=== PATIENT | female | born 1935 | race Caucasian/White ===

== ENCOUNTER 2017-07-08 19:16 | Inpatient (IN) | payer MEDICARE, BC ==
[2017-07-08] MEDS ORDERED: Sodium Chloride 0.9% 10 ML Syringe FLUSH PRN (19:39)
[2017-07-08] MEDS ORDERED: Sodium Chloride 0.9% 1,000 ML IV ONE (19:41)
--- NOTE | 2017-07-08 20:25 | CT ---
Head CT Technique: Multiple axial sections through the brain were obtained. Intravenous contrast was not utilized. Comparison: Previous noncontrast head CT exam of 02/22/13. Findings: Ventricles along with basal cisterns and sulci over the convexities are moderately prominent. Diffuse diminished density is is noted within the periventricular and subcortical white matter which is compatible with small vessel ischemic demyelination change. Mild diminished density noted within the right temporal lobe suspicious for fairly acute infarct. No other abnormal parenchymal densities are seen. No evidence of intracranial hemorrhage. No midline shift or mass effect is seen. Bone window settings were reviewed which shows the visualized sinuses to appear clear. No acute calvarial abnormality is seen. Impression: 1. Fairly acute infarct is likely present within the right temporal region. 2. Other senescent change as noted above which appears chronic. 3. No intracranial hemorrhage is seen. Diagnostic code #3
[2017-07-08] MEDS ORDERED: Calcium Carbonate 500 MG Tab.Chew PO PRN (22:21)
[2017-07-08] MEDS ORDERED: Bisacodyl 10 MG Supp RECTAL PRN (22:21)
[2017-07-08] MEDS ORDERED: Aluminum Hydroxide/Magnesium Hydroxide/Simethicone Susp 30 ML Cup PO PRN (22:21)
[2017-07-08] MEDS ORDERED: Docusate Sodium 100 MG Cap PO PRN (22:21)
--- NOTE | 2017-07-08 22:29 | EDM.PDOC ---
ED HPI GENERAL MEDICAL PROBLEM - General Chief Complaint: Genitourinary Problem Stated Complaint: MARIN AMB Time Seen by Provider: 07/08/17 19:20 Source of Information: Reports: Patient History Limitations: Reports: No Limitations - History of Present Illness INITIAL COMMENTS - FREE TEXT/NARRATIVE: 82-year-old female is brought in by EMS after she was found on the ground. Reportedly the patient's neighbor checked on her and found her on the ground. When EMS arrived she told him that she was laying on the ground as she has chronic back pain and this helps with her pain. When first questioned by EMS she was alert and oriented 2. After further discussion she was alert and orientated by 4. Reportedly the patient has recently been started on antibiotic for urinary tract infection. Upon arrival to the ER the patient reports that she feels cold. She reports back pain. Denies any headaches, chest pain, shortness of breath, abdominal pain , nausea vomiting, fevers. Patient is alert and oriented 4 upon my questioning. She does answer questions appropriately. Reportedly the patient lives at home by herself. Patient's children have arrived to the ER. Daughter states that she has been trying to get all of her all day. Son reports that he talks to her daily. States they were unable to get a hold of her around 5 PM. They began concerned and asked a neighbor to check on her. she was found to be down the floor. Back Pain Score (Numeric/FACES): 8 - Related Data Allergies Allergy/AdvReac Type Severity Reaction Status Date / Time codeine Allergy Hives Verified 07/08/17 19:24 losartan [From Cozaar] Allergy Hives Verified 07/08/17 19:24 Home Meds: Home Meds Allopurinol [Zyloprim] 1 tab PO DAILY 07/08/17 [History] Ciprofloxacin HCl [Cipro] 1 tab PO BID 07/08/17 [History] Enalapril [Vasotec] 1 tab PO DAILY 07/08/17 [History] Metoprolol Succinate 1 tab PO DAILY 07/08/17 [History] Multivits,Ca,Minerals/Iron/FA [One-A-Day Women's] 1 tab PO DAILY 07/08/17 [ History] Sulfamethoxazole/Trimethoprim [Bactrim Ds Tablet] 1 tab PO BID 07/08/17 [History ] Triamterene/Hydrochlorothiazid [Triamterene-HCTZ 37.5-25 MG] 1 cap PO DAILY 11/19 [History] atorvaSTATin [Lipitor] 1 tab PO DAILY 07/08/17 [History] traMADol [Ultram] 1 tab PO Q4HR PRN 07/08/17 [History] Past Medical History HEENT History: Reports: Other (See Below) Other HEENT History: wears glasses Cardiovascular History: Reports: Hypertension Genitourinary History: Reports: UTI, Recurrent Musculoskeletal History: Reports: Back Pain, Chronic - Past Surgical History Female Surgical History: Reports: Hysterectomy Social & Family History - Tobacco Use Smoking Status *Q: Never Smoker - Recreational Drug Use Recreational Drug Use: No ED ROS GENERAL - Review of Systems Review Of Systems: See Below Constitutional: Denies: Fever, Chills Respiratory: Denies: Shortness of Breath Cardiovascular: Denies: Chest Pain GI/Abdominal: Denies: Abdominal Pain, Nausea, Vomiting Musculoskeletal: Reports: Back Pain (chronic) Neurological: Denies: Headache ED EXAM, RENAL/ - Physical Exam Exam: See Below Exam Limited By: No Limitations General Appearance: Alert, WD/WN, No Apparent Distress Eye Exam: Bilateral Eye: EOMI, PERRL Ears: Normal External Exam Nose: Normal Inspection Throat/Mouth: Normal Inspection, Normal Lips, Normal Voice, No Airway Compromise Respiratory/Chest: No Respiratory Distress, Lungs Clear, Normal Breath Sounds Cardiovascular: Normal Peripheral Pulses, Regular Rate, Rhythm, No Murmur GI/Abdominal: Soft, Non-Tender Extremities: Normal Inspection, Other (no rotation to the lower legs; pelvis stable) Neurological: Alert, Oriented, Memory Loss Recent Events Psychiatric: Normal Affect, Normal Mood Skin Exam: Warm, Dry, Normal Color EKG INTERPRETATION EKG Date: 07/08/17 Time: 20:15 Rhythm: NSR Rate (Beats/Min): 98 Grady: Normal P-Wave: Present QRS: Normal ST-T: Normal QT: Normal EKG Interpretation Comments: NSR at 98 bpm. Multiple PVCs. Probable LVH. T wave inversion in V5 and V6. Reviewed by myself and Dr. Lee. Course - Vital Signs Last Recorded V/S: Last Vital Signs Temp 37.3 C 07/08/17 22:30 Pulse 103 H 07/08/17 22:30 Resp 20 07/08/17 22:30 BP 152/90 H 07/08/17 22:30 Pulse Ox 96 07/08/17 22:30 - Orders/Labs/Meds Orders: Active Orders 24 hr Category Date Time Status Patient Status [ADT] Routine ADT 07/08/17 22:21 Active Antiembolic Devices [RC] .Routine Care 07/08/17 22:14 Active Assess Neurological Status [RC] Q4H Care 07/08/17 22:12 Active Cardiac Monitoring [RC] . DIRECTED Care 07/08/17 19:39 Active Communication Order [RC] ASDIRECTED Care 07/08/17 22:13 Active EKG 12 Lead [EKG Documentation Completion] [RC] STAT Care 07/08/17 19:42 Active Head of Bed Elevation [RC] ASDIRECTED Care 07/08/17 22:13 Active Height and Weight [RC] DAILY Care 07/08/17 22:21 Active Intake and Output [RC] QSHIFT Care 07/08/17 22:23 Active NIH Stroke Scale [RC] ASDIRECTED Care 07/08/17 22:13 Active Notify Provider Status Change [RC] ASDIRECTED Care 07/08/17 22:13 Active Nursing Bedside Swallow Screen [RC] ASDIRECTED Care 07/08/17 22:13 Active Peripheral IV Care [RC] . DIRECTED Care 07/08/17 19:40 Active Up With Assistance [RC] ASDIRECTED Care 07/08/17 22:21 Active VTE/DVT Education [RC] PER UNIT ROUTINE Care 07/08/17 22:14 Active Vital Signs [RC] ASDIRECTED Care 07/08/17 22:12 Active Vital Signs [RC] Q4H Care 07/08/17 22:21 Active Consult to Case Management [CONS] Routine Cons 07/08/17 22:16 Active OT Evaluation and Treatment [CONS] Routine Cons 07/08/17 22:12 Active PT Evaluation and Treatment [CONS] Routine Cons 07/08/17 22:12 Active ASSOCIATE COUNSEL Evaluation and Treatment [CONS] Routine Cons 07/08/17 22:16 Active Brain w wo Cont [MR] Routine Exams 07/08/17 22:12 Ordered Carotid Comp [US] Routine Exams 07/09/17 08:00 Ordered Chest 1V Frontal [CR] Stat Exams 07/08/17 19:39 Taken Echo Comp wo Cont [US] Routine Exams 07/09/17 08:00 Ordered CPK [CREATINE KINASE,CK] [CHEM] AM Lab 07/09/17 05:11 Ordered CULTURE BLOOD [BC] Stat Lab 07/08/17 19:43 Ordered CULTURE BLOOD [BC] Stat Lab 07/08/17 19:43 Ordered CULTURE URINE [RM] Stat Lab 07/08/17 18:45 Received Acetaminophen [Tylenol] Med 07/08/17 22:12 Ordered 650 mg PO Q4H PRN Allopurinol [Zyloprim] Med 07/09/17 09:00 Active 100 mg PO DAILY Alum Hydrox/Mag Hydrox/Simeth [Mag-Al Plus] Med 07/08/17 22:21 Active 30 ml PO Q4H PRN Aspirin Med 07/09/17 09:00 Ordered 324 mg PO DAILY Bisacodyl [Dulcolax] Med 07/08/17 22:21 Active 10 mg RECTAL DAILY PRN Calcium Carbonate [Tums] Med 07/08/17 22:21 Active 500 mg PO Q4H PRN Docusate Sodium [Colace] Med 07/08/17 22:21 Active 100 mg PO DAILY PRN Enalapril Med 07/09/17 09:00 Ordered 1 tab PO DAILY Enoxaparin [Lovenox] Med 07/09/17 09:00 Ordered 40 mg SUBCUT DAILY Metoprolol Succinate [Toprol XL] Med 07/09/17 09:00 Active 50 mg PO DAILY Multivits,Ca,Minerals/Iron/FA [One-A-Day Women's] Med 07/09/17 09:00 Ordered 1 tab PO DAILY Simvastatin [Zocor] Med 07/09/17 21:00 Active 20 mg PO BEDTIME Sodium Chloride 0.9% [Normal Saline] 1,000 ml Med 07/08/17 22:30 Active IV ASDIRECTED Sodium Chloride 0.9% [Saline Flush] Med 07/08/17 19:39 Active 10 ml FLUSH ASDIRECTED PRN traMADol [Ultram] Med 07/08/17 22:09 Active 50 mg PO Q4H PRN Antiembolic Hose [OM.PC] Per Unit Routine Oth 07/08/17 22:17 Ordered Blood Culture x2 Reflex Set [OM.PC] Stat Oth 07/08/17 19:43 Ordered DVT/VTE Prophylaxis Reflex [OM.PC] Routine Oth 07/08/17 22:12 Ordered Peripheral IV Insertion Adult [OM.PC] Routine Oth 07/08/17 19:38 Ordered Resuscitation Status Stat Resus Stat 07/08/17 22:26 Ordered Medication Orders Acetaminophen (Tylenol) 650 mg PO Q4H PRN PRN Reason: Fever Al Hydroxide/Mg Hydroxide (Mag-Al Plus) 30 ml PO Q4H PRN PRN Reason: Dyspepsia Allopurinol (Zyloprim) 100 mg PO DAILY [facility] Aspirin (Halfprin) 324 mg PO DAILY PRIMO Bisacodyl (Dulcolax) 10 mg RECTAL DAILY PRN PRN Reason: Constipation Calcium Carbonate/Glycine (Tums) 500 mg PO Q4H PRN PRN Reason: Dyspepsia Docusate Sodium (Colace) 100 mg PO DAILY PRN PRN Reason: Constipation Enalapril Maleate (Vasotec) 20 mg PO DAILY [facility] Enoxaparin Sodium (Lovenox) 40 mg SUBCUT DAILY [facility] Sodium Chloride (Normal Saline) 1,000 mls @ 125 mls/hr IV ASDIRECTED PRIMO Last Admin: 07/08/17 23:00 Dose: 125 mls/hr Metoprolol Succinate (Toprol Xl) 50 mg PO DAILY [facility] Multivitamins (Thera) 1 each PO DAILY [facility] Simvastatin (Zocor) 20 mg PO BEDTIME [facility] Sodium Chloride (Saline Flush) 10 ml FLUSH ASDIRECTED PRN PRN Reason: Keep Vein Open Last Admin: 07/08/17 19:52 Dose: 10 ml Tramadol HCl (Ultram) 50 mg PO Q4H PRN PRN Reason: Pain Last Admin: 07/08/17 23:15 Dose: 50 mg Labs: Laboratory Tests 07/08/17 07/08/17 07/08/17 Range/Units 18:45 19:50 19:58 WBC (3.98-10.04) K/mm3 RBC (3.98-5.22) M/mm3 Hgb (11.2-15.7) gm/L Hct (34.1-44.9) % MCV (79.4-94.8) fl MCH (25.6-32.2) pg MCHC (32.2-35.5) g/dl RDW Std Deviation (36.4-46.3) fL Plt Count (182-369) K/mm3 MPV (9.4-12.3) fl Neutrophils % (Manual) (40-60) % Band Neutrophils % (0-10) % Lymphocytes % (Manual) (20-40) % Atypical Lymphs % % Monocytes % (Manual) (2-10) % Eosinophils % (Manual) (0.7-5.8) % Basophils % (Manual) (0.1-1.2) Platelet Estimate RBC Morph Comment PT (8.0-13.0) SECONDS INR APTT (22-36) SECONDS Sodium 140 (136-145) mEq/L Potassium 3.2 L (3.5-5.1) mEq/L Chloride 101 (98-107) mEq/L Carbon Dioxide 24 (21-32) mEq/L Anion Gap 18.2 H (5-15) BUN 25 H (7-18) mg/dL Creatinine 1.0 (0.55-1.02) mg/dL Est Cr Clr Drug Dosing 34.90 mL/min Estimated GFR (MDRD) 53 (>60) mL/min BUN/Creatinine Ratio 25.0 H (14-18) Glucose 121 H (83-115) mg/dL Lactic Acid 1.5 (0.4-2.0) mmol/L Calcium 9.9 (8.5-10.1) mg/dL Total Bilirubin 1.3 H (0.2-1.0) mg/dL AST 48 H (15-37) U/L ALT 32 (14-59) U/L Alkaline Phosphatase 66 (46-116) U/L Creatine Kinase 1209 H (26-192) U/L Troponin I 0.047 (0.00-0.056) ng/mL C-Reactive Protein 2.3 H* (<1.0) mg/dL Total Protein 7.5 (6.4-8.2) g/dl Albumin 4.0 (3.4-5.0) g/dl Globulin 3.5 gm/dL Albumin/Globulin Ratio 1.1 (1-2) Urine Color Yellow (Yellow) Urine Appearance Clear (Clear) Urine pH 6.0 (5.0-8.0) Ur Specific [place] 1.025 (1.005-1.030) Urine Protein 1+ H (Negative) Urine Glucose (UA) Negative (Negative) Urine Ketones Trace H (Negative) Urine Occult Blood Negative (Negative) Urine Nitrite Negative (Negative) Urine Bilirubin 1+ H (Negative) Urine Urobilinogen 0.2 (0.2-1.0) Ur Leukocyte Esterase Negative (Negative) Urine RBC 0-5 (0-5) /hpf Urine WBC 0-5 (0-5) /hpf Ur Epithelial Cells 0-5 (0-5) /hpf Urine Bacteria Few (FEW) /hpf Urine Mucus Few (FEW) /hpf 07/08/17 07/08/17 Range/Units 19:58 19:58 WBC 14.00 H (3.98-10.04) K/mm3 RBC 4.57 (3.98-5.22) M/mm3 Hgb 13.6 (11.2-15.7) gm/L Hct 39.6 (34.1-44.9) % MCV 86.7 (79.4-94.8) fl MCH 29.8 (25.6-32.2) pg MCHC 34.3 (32.2-35.5) g/dl RDW Std Deviation 39.6 (36.4-46.3) fL Plt Count 298 (182-369) K/mm3 MPV 9.9 (9.4-12.3) fl Neutrophils % (Manual) 84 H (40-60) % Band Neutrophils % 0 (0-10) % Lymphocytes % (Manual) 14 L (20-40) % Atypical Lymphs % 0 % Monocytes % (Manual) 2 (2-10) % Eosinophils % (Manual) 0 L (0.7-5.8) % Basophils % (Manual) 0 L (0.1-1.2) Platelet Estimate Adequate RBC Morph Comment Normal PT 11.3 (8.0-13.0) SECONDS INR 1.03 APTT 24 (22-36) SECONDS Sodium (136-145) mEq/L Potassium (3.5-5.1) mEq/L Chloride (98-107) mEq/L Carbon Dioxide (21-32) mEq/L Anion Gap (5-15) BUN (7-18) mg/dL Creatinine (0.55-1.02) mg/dL Est Cr Clr Drug Dosing mL/min Estimated GFR (MDRD) (>60) mL/min BUN/Creatinine Ratio (14-18) Glucose (83-115) mg/dL Lactic Acid (0.4-2.0) mmol/L Calcium (8.5-10.1) mg/dL Total Bilirubin (0.2-1.0) mg/dL AST (15-37) U/L ALT (14-59) U/L Alkaline Phosphatase (46-116) U/L Creatine Kinase (26-192) U/L Troponin I (0.00-0.056) ng/mL C-Reactive Protein (<1.0) mg/dL Total Protein (6.4-8.2) g/dl Albumin (3.4-5.0) g/dl Globulin gm/dL Albumin/Globulin Ratio (1-2) Urine Color (Yellow) Urine Appearance (Clear) Urine pH (5.0-8.0) Ur Specific [place] (1.005-1.030) Urine Protein (Negative) Urine Glucose (UA) (Negative) Urine Ketones (Negative) Urine Occult Blood (Negative) Urine Nitrite (Negative) Urine Bilirubin (Negative) Urine Urobilinogen (0.2-1.0) Ur Leukocyte Esterase (Negative) Urine RBC (0-5) /hpf Urine WBC (0-5) /hpf Ur Epithelial Cells (0-5) /hpf Urine Bacteria (FEW) /hpf Urine Mucus (FEW) /hpf Meds: Medications Generic Name Dose Route Start Last Admin Trade Name Freq PRN Reason Stop Dose Admin Acetaminophen 650 mg 07/08/17 22:12 Tylenol PO Q4H PRN Fever Al Hydroxide/Mg Hydroxide 30 ml 07/08/17 22:21 Mag-Al Plus PO Q4H PRN Dyspepsia Allopurinol 100 mg 07/09/17 09:00 Zyloprim PO DAILY [facility] Aspirin 324 mg 07/09/17 09:00 Halfprin PO DAILY PRIMO Bisacodyl 10 mg 07/08/17 22:21 Dulcolax RECTAL DAILY PRN Constipation Calcium Carbonate/Glycine 500 mg 07/08/17 22:21 Tums PO Q4H PRN Dyspepsia Docusate Sodium 100 mg 07/08/17 22:21 Colace PO DAILY PRN Constipation Enalapril Maleate 20 mg 07/09/17 09:00 Vasotec PO DAILY [facility] Enoxaparin Sodium 40 mg 07/09/17 09:00 Lovenox SUBCUT DAILY [facility] Sodium Chloride 1,000 mls @ 125 mls/hr 07/08/17 22:30 07/08/17 23:00 Normal Saline IV 125 mls/hr ASDIRECTED PRIMO Administration Metoprolol Succinate 50 mg 07/09/17 09:00 Toprol Xl PO DAILY PRIMO Multivitamins 1 each 07/09/17 09:00 Thera PO DAILY PRIMO Simvastatin 20 mg 07/09/17 21:00 Zocor PO BEDTIME PRIMO Sodium Chloride 10 ml 07/08/17 19:39 07/08/17 19:52 Saline Flush FLUSH 10 ml ASDIRECTED PRN Administration Keep Vein Open Tramadol HCl 50 mg 07/08/17 22:09 07/08/17 23:15 Ultram PO 50 mg Q4H PRN Administration Pain Discontinued Medications Generic Name Dose Route Start Last Admin Trade Name Freq PRN Reason Stop Dose Admin Sodium Chloride 1,000 mls @ 999 mls/hr 07/08/17 19:41 07/08/17 19:52 Normal Saline IV 07/08/17 20:41 100 mls/hr ONETIME ONE Administration - Radiology Interpretation Free Text/Narrative:: Head CT Technique: Multiple axial sections through the brain were obtained. Intravenous contrast was not utilized. Comparison: Previous noncontrast head CT exam of 02/22/13. Findings: Ventricles along with basal cisterns and sulci over the convexities are moderately prominent. Diffuse diminished density is is noted within the periventricular and subcortical white matter which is compatible with small vessel ischemic demyelination change. Mild diminished density noted within the right temporal lobe suspicious for fairly acute infarct. No other abnormal parenchymal densities are seen. No evidence of intracranial hemorrhage. No midline shift or mass effect is seen. Bone window settings were reviewed which shows the visualized sinuses to appear clear. No acute calvarial abnormality is seen. Impression: 1. Fairly acute infarct is likely present within the right temporal region. 2. Other senescent change as noted above which appears chronic. 3. No intracranial hemorrhage is seen. Chest xray shows no acute intrathoracic process. Formal radiology read pending. - Re-Assessments/Exams Free Text/Narrative Re-Assessment/Exam: 07/08/17 23:40 I reviewed the EKG, imaging and lab results with the patient's family. Her daughter is present is her power of civil rights attorney. I did discuss with her her disposition is as She has had a stroke. Offered them transfer to [place] to the [facility] where she would have intervention available to her. I also informed him that her creatinine kinase is elevated suggesting she has rhabdomyolysis from being down for so long. I informed them that we could keep her here in the hospital and hydrate her. We could also perform tests including MRI, carotid artery ultrasound and echocardiogram. We can also offer her things such as PT and OT. Family discussed this. They elect to stay here in [place]. They were made aware that we do not have any intervention available if needed. Daughter is her power of civil rights attorney. She states she does not have a living will or advanced directive. CODE STATUS is unclear at this time. I discussed the case with Dr. Tovar, hospitalist trial consultant. He agrees to the admission. Will admit to [facility] with telemetry. Departure - Departure Time of Disposition: 23:46 Disposition: Admitted As Inpatient 67 Condition: Fair Clinical Impression: Hypokalemia Rhabdomyolysis Qualifiers: Rhabdomyolysis type: traumatic Encounter type: initial encounter Qualified Code (s): T79.6XXA - Traumatic ischemia of muscle, initial encounter CVA (cerebral vascular accident) Qualifiers: Precerebral and cerebral artery: unspecified cerebral artery - Discharge Information Referrals: Ap Cooper MD [Primary Care Provider] - Forms: ED Department Discharge Additional Instructions: Patient admitted to [facility] with tele for a CVA, rhabdo and hypokalemia. Dr. Tovar accepting. - My Orders Last 24 Hours: My Active Orders 07/08/17 18:45 CULTURE URINE [RM] Stat 07/08/17 19:38 Peripheral IV Insertion Adult [OM.PC] Routine 07/08/17 19:39 Cardiac Monitoring [RC] . DIRECTED Chest 1V Frontal [CR] Stat Sodium Chloride 0.9% [Saline Flush] 10 ml FLUSH ASDIRECTED PRN 07/08/17 19:40 Peripheral IV Care [RC] . DIRECTED 07/08/17 19:42 EKG 12 Lead [EKG Documentation Completion] [RC] STAT 07/08/17 19:43 CULTURE BLOOD [BC] Stat CULTURE BLOOD [BC] Stat Blood Culture x2 Reflex Set [OM.PC] Stat - Assessment/Plan Last 24 Hours: My Active Orders 07/08/17 18:45 CULTURE URINE [RM] Stat 07/08/17 19:38 Peripheral IV Insertion Adult [OM.PC] Routine 07/08/17 19:39 Cardiac Monitoring [RC] . DIRECTED Chest 1V Frontal [CR] Stat Sodium Chloride 0.9% [Saline Flush] 10 ml FLUSH ASDIRECTED PRN 07/08/17 19:40 Peripheral IV Care [RC] . DIRECTED 07/08/17 19:42 EKG 12 Lead [EKG Documentation Completion] [RC] STAT 07/08/17 19:43 CULTURE BLOOD [BC] Stat CULTURE BLOOD [BC] Stat Blood Culture x2 Reflex Set [OM.PC] Stat
--- NOTE | 2017-07-08 22:36 | PCM.HP ---
H&P History of Present Illness - General Date of Service: 07/08/17 Admit Problem/Dx: Admission Diagnosis/Problem Admission Diagnosis/Problem CVA, Cerebrovascular accident Source of Information: Patient, EMS, Family - History of Present Illness Initial Comments - Free Text/Narative: 82-year-old female is brought in by EMS after she was found on the ground. Reportedly the patient's neighbor checked on her and found her on the ground. When EMS arrived she told him that she was laying on the ground as she has chronic back pain and this helps with her pain. When first questioned by EMS she was alert and oriented 2. After further discussion she was alert and orientated by 4. Reportedly the patient has recently been started on antibiotic for urinary tract infection, four days ago before admission. Upon arrival to the ER the patient reports that she feels cold. She reports back pain. Denies any headaches, chest pain, shortness of breath, abdominal pain , nausea vomiting, fevers. Patient is alert and oriented 4 upon my questioning. She does answer questions appropriately. Reportedly the patient lives at home by herself. Patient's children have arrived to the ER. Daughter states that she has been trying to get all of her all day. Son reports that he talks to her daily. States they were unable to get a hold of her around 5 PM. They began concerned and asked a neighbor to check on her. she was found to be down the floor. In ER they did a CT head which showed acute CVA IN RIGHT TEMPORAL AREA, CXR and EKG WNL. TPA wasn't used for unknown start of her symptoms. Back Pain Score (Numeric/FACES): 8 - Related Data Allergies/Adverse Reactions: Allergies Allergy/AdvReac Type Severity Reaction Status Date / Time codeine Allergy Hives Verified 07/09/17 03:12 losartan [From Cozaar] Allergy Hives Verified 07/09/17 03:12 Home Medications: Home Meds Allopurinol [Zyloprim] 1 tab PO DAILY 07/08/17 [History] Ciprofloxacin HCl [Cipro] 1 tab PO BID 07/08/17 [History] Enalapril [Vasotec] 1 tab PO DAILY 07/08/17 [History] Metoprolol Succinate 1 tab PO DAILY 07/08/17 [History] Multivits,Ca,Minerals/Iron/FA [One-A-Day Women's] 1 tab PO DAILY 07/08/17 [ History] Sulfamethoxazole/Trimethoprim [Bactrim Ds Tablet] 1 tab PO BID 07/08/17 [History ] Triamterene/Hydrochlorothiazid [Triamterene-HCTZ 37.5-25 MG] 1 cap PO DAILY 11/19 [History] atorvaSTATin [Lipitor] 1 tab PO DAILY 07/08/17 [History] traMADol [Ultram] 1 tab PO Q4HR PRN 07/08/17 [History] Past Medical History HEENT History: Reports: Other (See Below) Other HEENT History: wears glasses Cardiovascular History: Reports: Hypertension Genitourinary History: Reports: UTI, Recurrent Musculoskeletal History: Reports: Back Pain, Chronic - Past Surgical History Female Surgical History: Reports: Hysterectomy Social & Family History - Tobacco Use Smoking Status *Q: Never Smoker - Recreational Drug Use Recreational Drug Use: No H&P Review of Systems - Review of Systems: Review Of Systems: See Below General: Reports: No Symptoms HEENT: Reports: No Symptoms Pulmonary: Reports: No Symptoms Cardiovascular: Reports: No Symptoms Gastrointestinal: Reports: No Symptoms Genitourinary: Reports: No Symptoms Musculoskeletal: Reports: Other (pain in her tailbone ) Skin: Reports: No Symptoms Psychiatric: Reports: No Symptoms Neurological: Reports: No Symptoms Hematologic/Lymphatic: Reports: No Symptoms Immunologic: Reports: No Symptoms Exam - Exam Exam: See Below - Vital Signs Vital Signs: Last Vital Signs Temp 98 F 07/08/17 19:20 Pulse 100 07/08/17 19:20 Resp 17 07/08/17 19:20 BP 157/97 H 07/08/17 19:20 Pulse Ox 96 07/08/17 19:20 Weight: 125 lb - Exam General: Alert, Oriented, 4 HEENT: PERRLA, Hearing Intact, Mucosa Moist & [place], Nares Patent, Normal Nasal Septum, Posterior Pharynx Clear, Conjunctiva Clear, EOMI, EACs Clear, TMs Clear Neck: Supple, Trachea Midline, 2 Lungs: Clear to Auscultation, Normal Respiratory Effort Cardiovascular: Regular Rate, Regular Rhythm GI/Abdominal Exam: Normal Bowel Sounds, Soft, Non-Tender, No Organomegaly, No Distention, No Abnormal Bruit, No Mass, Pelvis Stable (Female) Exam: Deferred Rectal (Female) Exam: Deferred Back Exam: Normal Inspection, Full Range of Motion, NT Extremities: Normal Inspection, Normal Range of Motion, Non-Tender, No Pedal Edema, Normal Capillary Refill Skin: Warm, Dry, Intact Neurological: Cranial Nerves Intact, Reflexes Equal Bilateral Neuro Extensive - Mental Status: Alert, Oriented x3, Normal Mood/Affect, Normal Cognition Neuro Extensive - Motor, Sensory, Reflexes: CN II-XII Intact, Normal Gait, Normal Reflexes Psychiatric: Alert, Normal Affect, Normal Mood - Patient Data Lab Results Last 24 hrs: Laboratory Results - last 24 hr 07/08/17 07/08/17 07/08/17 Range/Units 18:45 19:50 19:58 WBC (3.98-10.04) K/mm3 RBC (3.98-5.22) M/mm3 Hgb (11.2-15.7) gm/L Hct (34.1-44.9) % MCV (79.4-94.8) fl MCH (25.6-32.2) pg MCHC (32.2-35.5) g/dl RDW Std Deviation (36.4-46.3) fL Plt Count (182-369) K/mm3 MPV (9.4-12.3) fl Neutrophils % (Manual) (40-60) % Band Neutrophils % (0-10) % Lymphocytes % (Manual) (20-40) % Atypical Lymphs % % Monocytes % (Manual) (2-10) % Eosinophils % (Manual) (0.7-5.8) % Basophils % (Manual) (0.1-1.2) Platelet Estimate RBC Morph Comment PT (8.0-13.0) SECONDS INR APTT (22-36) SECONDS Sodium 140 (136-145) mEq/L Potassium 3.2 L (3.5-5.1) mEq/L Chloride 101 (98-107) mEq/L Carbon Dioxide 24 (21-32) mEq/L Anion Gap 18.2 H (5-15) BUN 25 H (7-18) mg/dL Creatinine 1.0 (0.55-1.02) mg/dL Est Cr Clr Drug Dosing 34.90 mL/min Estimated GFR (MDRD) 53 (>60) mL/min BUN/Creatinine Ratio 25.0 H (14-18) Glucose 121 H (83-115) mg/dL Lactic Acid 1.5 (0.4-2.0) mmol/L Calcium 9.9 (8.5-10.1) mg/dL Total Bilirubin 1.3 H (0.2-1.0) mg/dL AST 48 H (15-37) U/L ALT 32 (14-59) U/L Alkaline Phosphatase 66 (46-116) U/L Creatine Kinase 1209 H (26-192) U/L Troponin I 0.047 (0.00-0.056) ng/mL C-Reactive Protein 2.3 H* (<1.0) mg/dL Total Protein 7.5 (6.4-8.2) g/dl Albumin 4.0 (3.4-5.0) g/dl Globulin 3.5 gm/dL Albumin/Globulin Ratio 1.1 (1-2) Urine Color Yellow (Yellow) Urine Appearance Clear (Clear) Urine pH 6.0 (5.0-8.0) Ur Specific [place] 1.025 (1.005-1.030) Urine Protein 1+ H (Negative) Urine Glucose (UA) Negative (Negative) Urine Ketones Trace H (Negative) Urine Occult Blood Negative (Negative) Urine Nitrite Negative (Negative) Urine Bilirubin 1+ H (Negative) Urine Urobilinogen 0.2 (0.2-1.0) Ur Leukocyte Esterase Negative (Negative) Urine RBC 0-5 (0-5) /hpf Urine WBC 0-5 (0-5) /hpf Ur Epithelial Cells 0-5 (0-5) /hpf Urine Bacteria Few (FEW) /hpf Urine Mucus Few (FEW) /hpf 07/08/17 07/08/17 Range/Units 19:58 19:58 WBC 14.00 H (3.98-10.04) K/mm3 RBC 4.57 (3.98-5.22) M/mm3 Hgb 13.6 (11.2-15.7) gm/L Hct 39.6 (34.1-44.9) % MCV 86.7 (79.4-94.8) fl MCH 29.8 (25.6-32.2) pg MCHC 34.3 (32.2-35.5) g/dl RDW Std Deviation 39.6 (36.4-46.3) fL Plt Count 298 (182-369) K/mm3 MPV 9.9 (9.4-12.3) fl Neutrophils % (Manual) 84 H (40-60) % Band Neutrophils % 0 (0-10) % Lymphocytes % (Manual) 14 L (20-40) % Atypical Lymphs % 0 % Monocytes % (Manual) 2 (2-10) % Eosinophils % (Manual) 0 L (0.7-5.8) % Basophils % (Manual) 0 L (0.1-1.2) Platelet Estimate Adequate RBC Morph Comment Normal PT 11.3 (8.0-13.0) SECONDS INR 1.03 APTT 24 (22-36) SECONDS Sodium (136-145) mEq/L Potassium (3.5-5.1) mEq/L Chloride (98-107) mEq/L Carbon Dioxide (21-32) mEq/L Anion Gap (5-15) BUN (7-18) mg/dL Creatinine (0.55-1.02) mg/dL Est Cr Clr Drug Dosing mL/min Estimated GFR (MDRD) (>60) mL/min BUN/Creatinine Ratio (14-18) Glucose (83-115) mg/dL Lactic Acid (0.4-2.0) mmol/L Calcium (8.5-10.1) mg/dL Total Bilirubin (0.2-1.0) mg/dL AST (15-37) U/L ALT (14-59) U/L Alkaline Phosphatase (46-116) U/L Creatine Kinase (26-192) U/L Troponin I (0.00-0.056) ng/mL C-Reactive Protein (<1.0) mg/dL Total Protein (6.4-8.2) g/dl Albumin (3.4-5.0) g/dl Globulin gm/dL Albumin/Globulin Ratio (1-2) Urine Color (Yellow) Urine Appearance (Clear) Urine pH (5.0-8.0) Ur Specific [place] (1.005-1.030) Urine Protein (Negative) Urine Glucose (UA) (Negative) Urine Ketones (Negative) Urine Occult Blood (Negative) Urine Nitrite (Negative) Urine Bilirubin (Negative) Urine Urobilinogen (0.2-1.0) Ur Leukocyte Esterase (Negative) Urine RBC (0-5) /hpf Urine WBC (0-5) /hpf Ur Epithelial Cells (0-5) /hpf Urine Bacteria (FEW) /hpf Urine Mucus (FEW) /hpf Result Diagrams: 07/09/17 05:17 07/09/17 05:17 EKG INTERPRETATION Rhythm: NSR [place]: Normal P-Wave: Present QRS: Normal ST-T: Normal QT: Normal *Q Meaningful Use (ADM) - VTE *Q VTE Criteria *Q: - Stroke *Q Stroke Criteria *Q: - AMI *Q AMI Criteria *Q: Problem List Initiated/Reviewed/Updated: Yes Orders Last 24hrs: Active Orders 24 hr Category Date Time Status Patient Status [ADT] Routine ADT 07/08/17 22:21 Ordered Antiembolic Devices [RC] .Routine Care 07/08/17 22:14 Ordered Assess Neurological Status [RC] Q4H Care 07/08/17 22:12 Ordered Cardiac Monitoring [RC] . DIRECTED Care 07/08/17 19:39 Active Communication Order [RC] ASDIRECTED Care 07/08/17 22:13 Ordered EKG 12 Lead [EKG Documentation Completion] [RC] STAT Care 07/08/17 19:42 Active Head of Bed Elevation [RC] ASDIRECTED Care 07/08/17 22:13 Ordered Height and Weight [RC] DAILY Care 07/08/17 22:21 Ordered Intake and Output [RC] QSHIFT Care 07/08/17 22:23 Ordered NIH Stroke Scale [RC] ASDIRECTED Care 07/08/17 22:13 Ordered Notify Provider Status Change [RC] ASDIRECTED Care 07/08/17 22:13 Ordered Nursing Bedside Swallow Screen [RC] ASDIRECTED Care 07/08/17 22:13 Ordered Peripheral IV Care [RC] . DIRECTED Care 07/08/17 19:40 Active Up With Assistance [RC] ASDIRECTED Care 07/08/17 22:21 Ordered VTE/DVT Education [RC] PER UNIT ROUTINE Care 07/08/17 22:14 Ordered Vital Signs [RC] ASDIRECTED Care 07/08/17 22:12 Ordered Vital Signs [RC] Q4H Care 07/08/17 22:21 Ordered Consult to Case Management [CONS] Routine Cons 07/08/17 22:16 Ordered OT Evaluation and Treatment [CONS] Routine Cons 07/08/17 22:12 Ordered PT Evaluation and Treatment [CONS] Routine Cons 07/08/17 22:12 Ordered GEOGRAPHICAL HISTORIAN Evaluation and Treatment [CONS] Routine Cons 07/08/17 22:16 Ordered Heart Healthy Diet [DIET] Diet 07/08/17 Breakfast Ordered Brain w wo Cont [MR] Routine Exams 07/08/17 22:12 Ordered Carotid Comp [US] Routine Exams 07/09/17 08:00 Ordered Chest 1V Frontal [CR] Stat Exams 07/08/17 19:39 Taken Echo Comp wo Cont [US] Routine Exams 07/09/17 08:00 Ordered BMP [BASIC METABOLIC PANEL,BMP] [CHEM] AM Lab 07/09/17 05:11 Ordered BMP [BASIC METABOLIC PANEL,BMP] [CHEM] AM Lab 07/10/17 05:11 Ordered BMP [BASIC METABOLIC PANEL,BMP] [CHEM] AM Lab 07/11/17 05:11 Ordered BMP [BASIC METABOLIC PANEL,BMP] [CHEM] AM Lab 07/12/17 05:11 Ordered CBC WITH AUTO DIFF [HEME] AM Lab 07/09/17 05:11 Ordered CBC WITH AUTO DIFF [HEME] AM Lab 07/10/17 05:11 Ordered CBC WITH AUTO DIFF [HEME] AM Lab 07/11/17 05:11 Ordered CBC WITH AUTO DIFF [HEME] AM Lab 07/12/17 05:11 Ordered CBC WITH AUTO DIFF [HEME] AM Lab 07/13/17 05:11 Ordered CPK [CREATINE KINASE,CK] [CHEM] AM Lab 07/09/17 05:11 Ordered CULTURE BLOOD [BC] Stat Lab 07/08/17 19:43 Ordered CULTURE BLOOD [BC] Stat Lab 07/08/17 19:43 Ordered CULTURE URINE [RM] Stat Lab 07/08/17 18:45 Received LIPID PANEL [CHEM] AM Lab 07/09/17 05:11 Ordered MAGNESIUM [CHEM] AM Lab 07/09/17 05:11 Ordered MAGNESIUM [CHEM] AM Lab 07/10/17 05:11 Ordered MAGNESIUM [CHEM] AM Lab 07/11/17 05:11 Ordered MAGNESIUM [CHEM] AM Lab 07/12/17 05:11 Ordered Acetaminophen [Tylenol] Med 07/08/17 22:12 Ordered 650 mg PO Q4H PRN Allopurinol [Zyloprim] Med 07/09/17 09:00 Ordered 1 tab PO DAILY Alum Hydrox/Mag Hydrox/Simeth [Mag-Al Plus] Med 07/08/17 22:21 Ordered 30 ml PO Q4H PRN Aspirin Med 07/09/17 09:00 Ordered 324 mg PO DAILY Bisacodyl [Dulcolax] Med 07/08/17 22:21 Ordered 10 mg RECTAL DAILY PRN Calcium Carbonate [Tums] Med 07/08/17 22:21 Ordered 500 mg PO Q4H PRN Docusate Sodium [Colace] Med 07/08/17 22:21 Ordered 100 mg PO DAILY PRN Enalapril Med 07/09/17 09:00 Ordered 1 tab PO DAILY Enoxaparin [Lovenox] Med 07/09/17 09:00 Ordered 40 mg SUBCUT DAILY Metoprolol Succinate [Toprol XL] Med 07/09/17 09:00 Ordered 1 tab PO DAILY Multivits,Ca,Minerals/Iron/FA [One-A-Day Women's] Med 07/09/17 09:00 Ordered 1 tab PO DAILY Simvastatin [Zocor] Med 07/09/17 21:00 Active 20 mg PO BEDTIME Sodium Chloride 0.9% @ 125 MLS/HR (1000ml Bag) Med 07/08/17 22:30 Ordered Sodium Chloride 0.9% [Normal Saline] 1,000 ml IV ASDIRECTED Sodium Chloride 0.9% [Saline Flush] Med 07/08/17 19:39 Active 10 ml FLUSH ASDIRECTED PRN traMADol [Ultram] Med 07/08/17 22:09 Ordered 1 tab PO Q4HR PRN Antiembolic Hose [OM.PC] Per Unit Routine Oth 07/08/17 22:17 Ordered Blood Culture x2 Reflex Set [OM.PC] Stat Oth 07/08/17 19:43 Ordered DVT/VTE Prophylaxis Reflex [OM.PC] Routine Oth 07/08/17 22:12 Ordered Peripheral IV Insertion Adult [OM.PC] Routine Oth 07/08/17 19:38 Ordered Resuscitation Status Stat Resus Stat 07/08/17 22:26 Ordered Medication Orders Acetaminophen (Tylenol) 650 mg PO Q4H PRN PRN Reason: Fever Al Hydroxide/Mg Hydroxide (Mag-Al Plus) 30 ml PO Q4H PRN PRN Reason: Dyspepsia Allopurinol (Zyloprim) 100 mg PO DAILY [facility] Aspirin (Halfprin) 324 mg PO DAILY [facility] Bisacodyl (Dulcolax) 10 mg RECTAL DAILY PRN PRN Reason: Constipation Calcium Carbonate/Glycine (Tums) 500 mg PO Q4H PRN PRN Reason: Dyspepsia Docusate Sodium (Colace) 100 mg PO DAILY PRN PRN Reason: Constipation Enalapril Maleate (Vasotec) 20 mg PO DAILY [facility] Enoxaparin Sodium (Lovenox) 40 mg SUBCUT DAILY [facility] Sodium Chloride (Normal Saline) 1,000 mls @ 125 mls/hr IV ASDIRECTED [facility] Metoprolol Succinate (Toprol Xl) 50 mg PO DAILY [facility] Multivitamins (Thera) 1 each PO DAILY [facility] Simvastatin (Zocor) 20 mg PO BEDTIME [facility] Sodium Chloride (Saline Flush) 10 ml FLUSH ASDIRECTED PRN PRN Reason: Keep Vein Open Last Admin: 07/08/17 19:52 Dose: 10 ml Tramadol HCl (Ultram) 50 mg PO Q4H PRN PRN Reason: Pain Assessment/Plan Comment:: ACUTE CVA in right temporal area, No TPA used ESS HTN HLP RHABDOMYLSIS RECENT UTI DVT PRO PLAN: -MRI/CAROTID/ECHO/ASA/STATIN/PT/OT/GEOGRAPHICAL HISTORIAN CONSULT -IVF, REPEAT CPK ON AM -RESUME HOME MED, WILL HOLD HCTZ FOR NOW, ALLOW FOR PERMISSIVE HTN POST CVA FOR 24H -DTR IS DPOA, REFUSE TRANSFER TO [facility] -U/A not indicated for UTI, but urine culture is pending HOSPITAL STAY MORE THAN 96H 2/2 ACUTE CVA
[2017-07-08] MEDS: Sodium Chloride 0.9% 1,000 ML IV SCH (23:00)
[2017-07-08] MEDS: traMADol 50 MG Tab PO PRN (23:15)
[2017-07-09] MEDS: Acetaminophen 325 MG Tab PO PRN (02:48)
[2017-07-09] MEDS ORDERED: Pneumococcal Polyvalent-23 Vaccine 0.5 ML SDV IM ONE (03:25)
[2017-07-09] MEDS: Sodium Chloride 0.9% 1,000 ML IV SCH ×2 (07:05→16:08)
--- NOTE | 2017-07-09 07:18 | CR ---
Chest: Portable view of the chest was obtained. Comparison: Prior chest x-ray of 10/22/13. Heart size is normal. Tortuous thoracic aorta is seen. Slight scarring is seen within the left base. Lungs otherwise are clear. Bony structures are osteopenic. No acute bony abnormality is identified. Impression: 1. Slight scarring within the left lung base. Nothing acute is seen. Diagnostic code #2
[2017-07-09] MEDS: traMADol 50 MG Tab PO PRN (07:41)
[2017-07-09] MEDS: Multivitamins,Therapeutic Tab PO SCH (08:12)
[2017-07-09] MEDS: Allopurinol 100 MG Tab PO SCH (08:13)
[2017-07-09] MEDS: Metoprolol Succinate 50 MG Tab.ER PO SCH (08:14)
[2017-07-09] MEDS: Aspirin 81 MG Tab.EC PO SCH (08:15)
[2017-07-09] MEDS: Enoxaparin 40 MG/0.4 ML Syringe SUBCUT SCH (08:20)
[2017-07-09] MEDS ORDERED: Magnesium Sulfate/Water 2 GM in Premix Bag 1 BAG IV ONE ×2 (08:52→11:00)
[2017-07-09] MEDS ORDERED: Potassium Chloride 20 MEQ Tab.ER PO ONE (08:52)
[2017-07-09] MEDS ORDERED: ATORVASTATIN PO SCH (09:00)
--- NOTE | 2017-07-09 11:11 | MR ---
MRI brain Technique: T1 sagittal; T2, T2 FLAIR, T1 and diffusion axial; T1 FLAIR coronal images were obtained through the brain. Comparison: Prior head CT exam of 07/08/17 Findings: Ventricles along with basal cisterns and sulci over the convexities are moderately prominent. Very slight abnormal diffusion is seen within the right temporal lobe. This is felt to correlate to the low density area on CT exam suspicious for a small and acute infarct. No corresponding finding is seen on the long TR sequences. Increased signal is noted on the long TR sequence within portions of the periventricular and subcortical white matter which is compatible with fairly extensive small vessel ischemic demyelination change. No other abnormal signal is appreciated within the brain. No midline shift or mass effect is seen. Impression: 1. Minimal abnormal diffusion suggested within a portion of the temporal lobe which is felt compatible with very early infarct within a portion of the right temporal lobe correlating to findings on CT exam. 2. Generalized atrophy. Prominent changes of small vessel ischemic demyelination change are also noted. Diagnostic code #3
--- NOTE | 2017-07-09 13:05 | US ---
Carotid ultrasound: Duplex and color flow imaging was obtained of the carotid arteries. Diffuse intimal thickening is seen. Mild amount of plaque identified within the right carotid bulb extending into the internal and external carotid arteries on the right side. Mild amount of plaque is noted within the left carotid bulb. Velocity measurements: Right side: CCA has a peak systolic velocity of 0.69 m/s. ICA has a peak systolic velocity of 0.94 m/s and peak end-diastolic velocity of 0.27 m/s. ECA has a peak systolic velocity of 0.66 m/s. Vertebral artery has a peak systolic velocity of 0.55 m/s. ICA/CCA ratio is 1.4. Left side: CCA has a peak systolic velocity of 0.80 m/s. ICA has a peak systolic velocity of 0.91 m/s and peak end-diastolic velocity of 0.20 m/s. ECA has a peak systolic velocity of 0.052 m/s. Vertebral artery has a peak systolic velocity of 0.62 m/s. ICA/CCA ratio is 1.1. Impression: 1. Mild amount of plaque. Velocity measurements within both internal carotid arteries correspond to stenosis in the range of 1-49%. Diagnostic code #2
[2017-07-09] MEDS: Ibuprofen 600 MG Tab PO PRN ×2 (13:14→21:00)
[2017-07-09] MEDS: Simvastatin 20 MG Tab PO SCH (21:01)
[2017-07-10] MEDS: Sodium Chloride 0.9% 1,000 ML IV SCH (00:17)
[2017-07-10] MEDS: Aspirin 81 MG Tab.EC PO SCH (08:27)
[2017-07-10] MEDS: Multivitamins,Therapeutic Tab PO SCH (08:30)
[2017-07-10] MEDS: Ibuprofen 600 MG Tab PO PRN ×3 (08:30→21:34)
[2017-07-10] MEDS: Allopurinol 100 MG Tab PO SCH (08:30)
[2017-07-10] MEDS: Enoxaparin 40 MG/0.4 ML Syringe SUBCUT SCH (08:31)
[2017-07-10] MEDS: Metoprolol Succinate 50 MG Tab.ER PO SCH (08:31)
--- NOTE | 2017-07-10 09:26 | PCM.PN ---
- General Info Date of Service: 07/09/17 Functional Status: Reports: Pain Controlled - Review of Systems General: Reports: No Symptoms HEENT: Reports: No Symptoms Pulmonary: Reports: No Symptoms Cardiovascular: Reports: No Symptoms Gastrointestinal: Reports: No Symptoms Genitourinary: Reports: No Symptoms Musculoskeletal: Reports: No Symptoms Skin: Reports: No Symptoms Neurological: Reports: No Symptoms Psychiatric: Reports: No Symptoms - Patient Data Vitals - Most Recent: Last Vital Signs Temp 97.9 F 07/09/17 19:11 Pulse 93 07/10/17 08:33 Resp 16 07/10/17 08:33 BP 189/78 H 07/10/17 08:33 Pulse Ox 100 07/10/17 08:33 Weight - Most Recent: 138 lb 2 oz I&O - Last 24 Hours: Intake & Output 07/09/17 07/10/17 07/10/17 22:59 06:59 14:59 Intake Total 940 1650 Output Total 250 Balance 690 1650 Lab Results Last 24 Hours: Laboratory Results - last 24 hr 07/10/17 07/10/17 07/10/17 Range/Units 05:55 05:55 05:55 WBC 7.52 (3.98-10.04) K/mm3 RBC 3.56 L (3.98-5.22) M/mm3 Hgb 10.7 L (11.2-15.7) gm/L Hct 32.3 L (34.1-44.9) % MCV 90.7 (79.4-94.8) fl MCH 30.1 (25.6-32.2) pg MCHC 33.1 (32.2-35.5) g/dl RDW Std Deviation 42.4 (36.4-46.3) fL Plt Count 213 (182-369) K/mm3 MPV 10.2 (9.4-12.3) fl Neut % (Auto) 69.2 (34.0-71.1) % Lymph % (Auto) 20.2 (19.3-51.7) % [place] % (Auto) 7.6 (4.7-12.5) % Eos % (Auto) 2.1 (0.7-5.8) Baso % (Auto) 0.4 (0.1-1.2) % Neut # (Auto) 5.20 (1.56-6.13) K/mm3 Lymph # (Auto) 1.52 (1.18-3.74) K/mm3 [place] # (Auto) 0.57 H (0.24-0.36) K/mm3 Eos # (Auto) 0.16 (0.04-0.36) K/mm3 Baso # (Auto) 0.03 (0.01-0.08) K/mm3 Sodium 144 (136-145) mEq/L Potassium 3.6 (3.5-5.1) mEq/L Chloride 112 H (98-107) mEq/L Carbon Dioxide 22 (21-32) mEq/L Anion Gap 13.6 (5-15) BUN 12 (7-18) mg/dL Creatinine 0.7 (0.55-1.02) mg/dL Est Cr Clr Drug Dosing 49.85 mL/min Estimated GFR (MDRD) > 60 (>60) mL/min BUN/Creatinine Ratio 17.1 (14-18) Glucose 90 (83-115) mg/dL Calcium 8.0 L (8.5-10.1) mg/dL Magnesium 1.6 L (1.8-2.4) mg/dl Creatine Kinase 471 H (26-192) U/L Med Orders - Current: Current Medications Acetaminophen (Tylenol) 650 mg PO Q4H PRN PRN Reason: Fever Last Admin: 07/09/17 02:48 Dose: 650 mg Al Hydroxide/Mg Hydroxide (Mag-Al Plus) 30 ml PO Q4H PRN PRN Reason: Dyspepsia Allopurinol (Zyloprim) 100 mg PO DAILY [facility] Last Admin: 07/10/17 08:30 Dose: 100 mg Aspirin (Halfprin) 324 mg PO DAILY [facility] Last Admin: 07/10/17 08:27 Dose: 324 mg Bisacodyl (Dulcolax) 10 mg RECTAL DAILY PRN PRN Reason: Constipation Calcium Carbonate/Glycine (Tums) 500 mg PO Q4H PRN PRN Reason: Dyspepsia Docusate Sodium (Colace) 100 mg PO DAILY PRN PRN Reason: Constipation Enalapril Maleate (Vasotec) 20 mg PO DAILY [facility] Last Admin: 07/10/17 08:27 Dose: 20 mg Enoxaparin Sodium (Lovenox) 40 mg SUBCUT DAILY [facility] Last Admin: 07/10/17 08:31 Dose: 40 mg Ibuprofen (Motrin) 600 mg PO Q6H PRN PRN Reason: Pain Last Admin: 07/10/17 08:30 Dose: 600 mg Metoprolol Succinate (Toprol Xl) 50 mg PO DAILY [facility] Last Admin: 07/10/17 08:31 Dose: 50 mg Multivitamins (Thera) 1 each PO DAILY [facility] Last Admin: 07/10/17 08:30 Dose: 1 each Simvastatin (Zocor) 20 mg PO BEDTIME [facility] Last Admin: 07/09/17 21:01 Dose: 20 mg Sodium Chloride (Saline Flush) 10 ml FLUSH ASDIRECTED PRN PRN Reason: Keep Vein Open Last Admin: 07/08/17 19:52 Dose: 10 ml Tramadol HCl (Ultram) 50 mg PO Q4H PRN PRN Reason: Pain Last Admin: 07/09/17 07:41 Dose: 25 mg Discontinued Medications Sodium Chloride (Normal Saline) 1,000 mls @ 999 mls/hr IV ONETIME ONE Stop: 07/08/17 20:41 Last Admin: 07/08/17 19:52 Dose: 100 mls/hr Sodium Chloride (Normal Saline) 1,000 mls @ 125 mls/hr IV ASDIRECTED [facility] Last Admin: 07/10/17 00:17 Dose: 125 mls/hr Magnesium Sulfate 2 gm/ Premix 50 mls @ 25 mls/hr IV ONETIME ONE Stop: 07/09/17 10:51 Last Admin: 07/09/17 09:34 Dose: 25 mls/hr Magnesium Sulfate 2 gm/ Premix 50 mls @ 25 mls/hr IV ONETIME ONE Stop: 07/09/17 12:59 Last Admin: 07/09/17 11:42 Dose: 25 mls/hr Pneumococcal Polyvalent Vaccine (Pneumovax 23) 0.5 ml IM .ONCE ONE Stop: 07/09/17 03:26 Potassium Chloride (Klor-Con M20) 40 meq PO ONETIME ONE Stop: 07/09/17 08:53 Last Admin: 07/09/17 09:34 Dose: 40 meq - Exam General: Alert, Oriented HEENT: Pupils Equal, Pupils Reactive, EOMI, Mucous Membr. Moist/[place] Neck: Supple Lungs: Clear to Auscultation, Normal Respiratory Effort Cardiovascular: Regular Rate, Regular Rhythm GI/Abdominal Exam: Normal Bowel Sounds, Soft, Non-Tender, No Organomegaly, No Distention, No Abnormal Bruit, No Mass, Pelvis Stable Extremities: Normal Inspection, Normal Range of Motion, Non-Tender, No Pedal Edema, Normal Capillary Refill Skin: Warm, Dry, Intact Neurological: No New Focal Deficit - Problem List Review Problem List Initiated/Reviewed/Updated: Yes - My Orders Last 24 Hours: My Active Orders 07/09/17 13:08 Ibuprofen [Motrin] 600 mg PO Q6H PRN 07/09/17 Dinner Heart Healthy Diet [DIET] - Plan Plan:: ACUTE CVA in right temporal area, No TPA used ESS HTN HLP RHABDOMYLSIS RECENT UTI DVT PRO PLAN: -MRI -->SHOWED ACUTE CVA -CAROTID WNL -PT/OT/SHIPPING & RECEIVING LEAD F/U -CONT ASA/STATIN -ECHO IS PENDING -RHABDO IMPROVING WITH IVF -U/A not indicated for UTI, but urine culture is pending HOSPITAL STAY MORE THAN 96H 2/2 ACUTE CVA
--- NOTE | 2017-07-10 09:29 | PCM.PN ---
- General Info Date of Service: 07/10/17 Subjective Update: PT IS DOING WELL WANTS TO GO HOME Functional Status: Reports: Pain Controlled - Review of Systems General: Reports: No Symptoms HEENT: Reports: No Symptoms Pulmonary: Reports: No Symptoms Cardiovascular: Reports: No Symptoms Gastrointestinal: Reports: No Symptoms Genitourinary: Reports: No Symptoms Musculoskeletal: Reports: No Symptoms Skin: Reports: No Symptoms Neurological: Reports: No Symptoms Psychiatric: Reports: No Symptoms - Patient Data Vitals - Most Recent: Last Vital Signs Temp 97.9 F 07/09/17 19:11 Pulse 93 07/10/17 08:33 Resp 16 07/10/17 08:33 BP 189/78 H 07/10/17 08:33 Pulse Ox 100 07/10/17 08:33 Weight - Most Recent: 138 lb 2 oz I&O - Last 24 Hours: Intake & Output 07/09/17 07/10/17 07/10/17 22:59 06:59 14:59 Intake Total 940 1650 Output Total 250 Balance 690 1650 Lab Results Last 24 Hours: Laboratory Results - last 24 hr 07/10/17 07/10/17 07/10/17 Range/Units 05:55 05:55 05:55 WBC 7.52 (3.98-10.04) K/mm3 RBC 3.56 L (3.98-5.22) M/mm3 Hgb 10.7 L (11.2-15.7) gm/L Hct 32.3 L (34.1-44.9) % MCV 90.7 (79.4-94.8) fl MCH 30.1 (25.6-32.2) pg MCHC 33.1 (32.2-35.5) g/dl RDW Std Deviation 42.4 (36.4-46.3) fL Plt Count 213 (182-369) K/mm3 MPV 10.2 (9.4-12.3) fl Neut % (Auto) 69.2 (34.0-71.1) % Lymph % (Auto) 20.2 (19.3-51.7) % [place] % (Auto) 7.6 (4.7-12.5) % Eos % (Auto) 2.1 (0.7-5.8) Baso % (Auto) 0.4 (0.1-1.2) % Neut # (Auto) 5.20 (1.56-6.13) K/mm3 Lymph # (Auto) 1.52 (1.18-3.74) K/mm3 [place] # (Auto) 0.57 H (0.24-0.36) K/mm3 Eos # (Auto) 0.16 (0.04-0.36) K/mm3 Baso # (Auto) 0.03 (0.01-0.08) K/mm3 Sodium 144 (136-145) mEq/L Potassium 3.6 (3.5-5.1) mEq/L Chloride 112 H (98-107) mEq/L Carbon Dioxide 22 (21-32) mEq/L Anion Gap 13.6 (5-15) BUN 12 (7-18) mg/dL Creatinine 0.7 (0.55-1.02) mg/dL Est Cr Clr Drug Dosing 49.85 mL/min Estimated GFR (MDRD) > 60 (>60) mL/min BUN/Creatinine Ratio 17.1 (14-18) Glucose 90 (83-115) mg/dL Calcium 8.0 L (8.5-10.1) mg/dL Magnesium 1.6 L (1.8-2.4) mg/dl Creatine Kinase 471 H (26-192) U/L Med Orders - Current: Current Medications Acetaminophen (Tylenol) 650 mg PO Q4H PRN PRN Reason: Fever Last Admin: 07/09/17 02:48 Dose: 650 mg Al Hydroxide/Mg Hydroxide (Mag-Al Plus) 30 ml PO Q4H PRN PRN Reason: Dyspepsia Allopurinol (Zyloprim) 100 mg PO DAILY ON LICENSE OF [facility] Last Admin: 07/10/17 08:30 Dose: 100 mg Aspirin (Halfprin) 324 mg PO DAILY ON LICENSE OF [facility] Last Admin: 07/10/17 08:27 Dose: 324 mg Bisacodyl (Dulcolax) 10 mg RECTAL DAILY PRN PRN Reason: Constipation Calcium Carbonate/Glycine (Tums) 500 mg PO Q4H PRN PRN Reason: Dyspepsia Docusate Sodium (Colace) 100 mg PO DAILY PRN PRN Reason: Constipation Enalapril Maleate (Vasotec) 20 mg PO DAILY ON LICENSE OF [facility] Last Admin: 07/10/17 08:27 Dose: 20 mg Enoxaparin Sodium (Lovenox) 40 mg SUBCUT DAILY ON LICENSE OF [facility] Last Admin: 07/10/17 08:31 Dose: 40 mg Ibuprofen (Motrin) 600 mg PO Q6H PRN PRN Reason: Pain Last Admin: 07/10/17 08:30 Dose: 600 mg Metoprolol Succinate (Toprol Xl) 50 mg PO DAILY ON LICENSE OF [facility] Last Admin: 07/10/17 08:31 Dose: 50 mg Multivitamins (Thera) 1 each PO DAILY ON LICENSE OF [facility] Last Admin: 07/10/17 08:30 Dose: 1 each Simvastatin (Zocor) 20 mg PO BEDTIME ON LICENSE OF [facility] Last Admin: 07/09/17 21:01 Dose: 20 mg Sodium Chloride (Saline Flush) 10 ml FLUSH ASDIRECTED PRN PRN Reason: Keep Vein Open Last Admin: 07/08/17 19:52 Dose: 10 ml Tramadol HCl (Ultram) 50 mg PO Q4H PRN PRN Reason: Pain Last Admin: 07/09/17 07:41 Dose: 25 mg Discontinued Medications Sodium Chloride (Normal Saline) 1,000 mls @ 999 mls/hr IV ONETIME ONE Stop: 07/08/17 20:41 Last Admin: 07/08/17 19:52 Dose: 100 mls/hr Sodium Chloride (Normal Saline) 1,000 mls @ 125 mls/hr IV ASDIRECTED ON LICENSE OF [facility] Last Admin: 07/10/17 00:17 Dose: 125 mls/hr Magnesium Sulfate 2 gm/ Premix 50 mls @ 25 mls/hr IV ONETIME ONE Stop: 07/09/17 10:51 Last Admin: 07/09/17 09:34 Dose: 25 mls/hr Magnesium Sulfate 2 gm/ Premix 50 mls @ 25 mls/hr IV ONETIME ONE Stop: 07/09/17 12:59 Last Admin: 07/09/17 11:42 Dose: 25 mls/hr Pneumococcal Polyvalent Vaccine (Pneumovax 23) 0.5 ml IM .ONCE ONE Stop: 07/09/17 03:26 Potassium Chloride (Klor-Con M20) 40 meq PO ONETIME ONE Stop: 07/09/17 08:53 Last Admin: 07/09/17 09:34 Dose: 40 meq - Exam General: Alert, Oriented HEENT: Pupils Equal, Pupils Reactive, EOMI, Mucous Membr. Moist/[place] Neck: Supple Lungs: Clear to Auscultation, Normal Respiratory Effort Cardiovascular: Regular Rate, Regular Rhythm GI/Abdominal Exam: Normal Bowel Sounds, Soft, Non-Tender, No Organomegaly, No Distention, No Abnormal Bruit, No Mass, Pelvis Stable Extremities: Normal Inspection, Normal Range of Motion, Non-Tender, No Pedal Edema, Normal Capillary Refill Skin: Warm, Dry, Intact Neurological: No New Focal Deficit Psy/Mental Status: Alert, Normal Affect, Normal Mood - Problem List Review Problem List Initiated/Reviewed/Updated: Yes - My Orders Last 24 Hours: My Active Orders 07/09/17 13:08 Ibuprofen [Motrin] 600 mg PO Q6H PRN 07/09/17 Dinner Heart Healthy Diet [DIET] - Plan Plan:: ACUTE CVA in right temporal area, No TPA used ESS HTN HLP RHABDOMYLSIS RECENT UTI DVT PRO PLAN: -MRI -->SHOWED ACUTE CVA -CAROTID WNL -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
[2017-07-10] MEDS ORDERED: Magnesium Sulfate/Water 2 GM in Premix Bag 1 BAG IV ONE (09:36)
[2017-07-10] MEDS: Simvastatin 20 MG Tab PO SCH (20:36)
[2017-07-11] MEDS: Ibuprofen 600 MG Tab PO PRN ×2 (03:47→11:42)
[2017-07-11] MEDS: Acetaminophen 325 MG Tab PO PRN (06:45)
--- NOTE | 2017-07-11 06:48 | PCM.DCSUM1 ---
Discharge Summary - Hospital Course Free Text/Narrative:: 82-year-old female is brought in by EMS after she was found on the ground. Reportedly the patient's neighbor checked on her and found her on the ground. When EMS arrived she told him that she was laying on the ground as she has chronic back pain and this helps with her pain. When first questioned by EMS she was alert and oriented 2. After further discussion she was alert and orientated by 4. Reportedly the patient has recently been started on antibiotic for urinary tract infection, four days ago before admission. Upon arrival to the ER the patient reports that she feels cold. She reports back pain. Denies any headaches, chest pain, shortness of breath, abdominal pain , nausea vomiting, fevers. Patient is alert and oriented 4 upon my questioning. She does answer questions appropriately. Reportedly the patient lives at home by herself. Patient's children have arrived to the ER. Daughter states that she has been trying to get all of her all day. Son reports that he talks to her daily. States they were unable to get a hold of her around 5 PM. They began concerned and asked a neighbor to check on her. she was found to be down the floor. In ER they did a CT head which showed acute CVA IN RIGHT TEMPORAL AREA, CXR and EKG WNL. TPA wasn't used for unknown start of her symptoms. Hospitalist service is consulted for admission for CVA as noted above. Course of Hospital stay: Lipid panel was obtained with excellent cholesterol total 143 LDL 82 HDL 49 triglycerides 96. She is on a statin prior to admission and will continue that at home. She was started on full strength aspirin 325 mg once daily and will continue that on discharge as well. CK levels initially were 1209 came down to 471 fluids were discontinued at that time. Carotid ultrasound work was obtained showing mild plaque with 1-49% stenosis. MRI of the brain was obtained showing temporal lobe diffusion abnormality consistent with early CVA matching prior CT of the head reports as noted above. Generalized atrophy was also noted on this MRI. Initial EKG in the emergency department showed sinus rhythm with rate of 98 bpm T wave inversion was noted in V5 and V6 multifocal PVCs were noted. Telemetry was unremarkable during her hospital stay. Echocardiogram was obtained with EF of 60%, grade 1 diastolid dysfunction. No other acute abnormalities or valvular concerns. Blood cultures and urine cultures were negative. Patient worked with PT OT progressing with generalized weakness. Speech therapy was consulted with no difficulty with swallow and will be discontinued at time of discharge. Magnesium and potassium were low and supplemented. She will be discharged on mag supplement daily. She'll be discharged today to [facility] continue with PT OT for rehabilitation stay there. She should follow up with Dr. Cooper within 1 week discharge. - Discharge Data Discharge Date: 07/11/17 (admit date 07/08/17) Discharge Disposition: DC/Tfer to SNF 03 Condition: Good - Discharge Diagnosis/Problem(s) (1) CVA (cerebral vascular accident) SNOMED Code(s): 552386823 ICD Code: I63.9 - CEREBRAL INFARCTION, UNSPECIFIED Status: Acute Priority : High Current Visit: Yes Qualifiers: Precerebral and cerebral artery: unspecified cerebral artery (2) Hypokalemia SNOMED Code(s): 79608698 ICD Code: E87.6 - HYPOKALEMIA Status: Resolved Priority: Medium Current Visit: Yes (3) Rhabdomyolysis SNOMED Code(s): 482149785 ICD Code: M62.82 - RHABDOMYOLYSIS Status: Resolved Priority: Medium Current Visit: Yes Qualifiers: Rhabdomyolysis type: traumatic Encounter type: initial encounter Qualified Code(s): T79.6XXA - Traumatic ischemia of muscle, initial encounter (4) HTN (hypertension) SNOMED Code(s): 63365780 ICD Code: I10 - ESSENTIAL (PRIMARY) HYPERTENSION Status: Chronic Priority : High Current Visit: Yes Qualifiers: Hypertension type: essential hypertension Qualified Code(s): I10 - Essential (primary) hypertension (5) HLD (hyperlipidemia) SNOMED Code(s): 69590146 ICD Code: E78.5 - HYPERLIPIDEMIA, UNSPECIFIED Status: Chronic Priority: Medium Current Visit: Yes Qualifiers: Hyperlipidemia type: unspecified Qualified Code(s): E78.5 - Hyperlipidemia , unspecified - Patient Summary/Data Operative Procedure(s) Performed: None Complications: None Consults: Consultations 07/10/17 23:24 Consult to Salvager [CONS] Routine Labs Pending at D/C: None Recommended Follow-up Testing/Procedures: Follow up with PCP, Dr. Cooper within one week of DC. Planned Operative Procedure(s) after DC: None Hospital Course: As above - Patient Instructions Diet: Heart Healthy Diet Activity: As Tolerated (PT/OT) Driving: Do Not Drive Showering/Bathing: May Shower Notify Provider of: Fever, Increased Pain, Nausea and/or Vomiting - Discharge Plan Prescriptions/Med Rec: Aspirin [Halfprin] 324 mg PO DAILY #30 tab.ec Magnesium Oxide 400 mg PO BID #60 tablet Home Medications: Home Meds Allopurinol [Zyloprim] 100 mg PO DAILY 07/08/17 [History] Enalapril [Vasotec] 20 mg PO DAILY 07/08/17 [History] Metoprolol Succinate 50 mg PO DAILY 07/08/17 [History] Multivits,Ca,Minerals/Iron/FA [One-A-Day Women's] 1 tab PO DAILY 07/08/17 [ History] Triamterene/Hydrochlorothiazid [Triamterene-HCTZ 37.5-25 MG] 1 tab PO DAILY 11/19 [History] atorvaSTATin [Lipitor] 20 mg PO DAILY 07/08/17 [History] traMADol [Ultram] 50 mg PO Q4HR PRN 07/08/17 [History] Acetaminophen [Tylenol] 650 mg PO Q4H PRN tablet 07/11/17 [Rx] Alum Hydrox/Mag Hydrox/Simeth [Mag-Al Plus] 30 ml PO Q4H PRN cup 07/11/17 [Rx] Aspirin [Halfprin] 324 mg PO DAILY #30 tab.ec 07/11/17 [Rx] Calcium Carbonate [Tums] 500 mg PO Q4H PRN tab.chew 07/11/17 [Rx] Docusate Sodium [Colace] 100 mg PO DAILY PRN cap 07/11/17 [Rx] Ibuprofen [IJD: Ibuprofen] 600 mg PO Q6H PRN tablet 07/11/17 [Rx] Magnesium Oxide 400 mg PO BID #60 tablet 07/11/17 [Rx] Patient Handouts: Stroke Prevention, [id number], Hypokalemia, Ischemic Stroke Treated Without Warfarin Forms: ED Department Discharge Referrals: Asa Guevara MD [Physician] - 07/11/17 1:40 pm (Bilateral wrist injections for carpal tunnel, being done by Kelly Macedo in Dr. Guevara's office.) Ap Cooper MD [Primary Care Provider] - (Please make follow-up within 1 week of discharge.) - Discharge Summary/Plan Comment DC Time >30 min.: Yes (40 min) - General Info Date of Service: 07/11/17 Admission Dx/Problem (Free Text: Admission Diagnosis/Problem Admission Diagnosis/Problem CVA, Cerebrovascular accident Patient doing well, anxious for DC to [facility] today for rehab stay. No f/c/s, CP, SOB, palpitations, [place], visual changes. Voiding. Eating/drinking without coughing or other concerns. Functional Status: Reports: Pain Controlled, Tolerating Diet, Ambulating, Urinating. Denies: New Symptoms - Review of Systems General: Reports: Weakness (generalized but improving). Denies: Fever HEENT: Reports: No Symptoms Pulmonary: Reports: No Symptoms Cardiovascular: Reports: No Symptoms Gastrointestinal: Reports: No Symptoms Genitourinary: Reports: No Symptoms Musculoskeletal: Reports: No Symptoms Skin: Reports: No Symptoms Neurological: Reports: No Symptoms Psychiatric: Reports: No Symptoms - Patient Data Vitals - Most Recent: Last Vital Signs Temp 98.1 F 07/10/17 23:59 Pulse 83 07/10/17 23:59 Resp 20 07/10/17 23:59 BP 169/65 H 07/10/17 23:59 Pulse Ox 97 07/10/17 23:59 Weight - Most Recent: 135 lb 12.8 oz I&O - Last 24 hours: Intake & Output 07/10/17 07/10/17 07/11/17 14:59 22:59 06:59 Intake Total 540 590 100 Output Total 200 200 Balance 540 390 -100 Lab Results - Last 24 hrs: Laboratory Results - last 24 hr 07/10/17 07/10/17 07/10/17 Range/Units 05:55 05:55 05:55 WBC 7.52 (3.98-10.04) K/mm3 RBC 3.56 L (3.98-5.22) M/mm3 Hgb 10.7 L (11.2-15.7) gm/L Hct 32.3 L (34.1-44.9) % MCV 90.7 (79.4-94.8) fl MCH 30.1 (25.6-32.2) pg MCHC 33.1 (32.2-35.5) g/dl RDW Std Deviation 42.4 (36.4-46.3) fL Plt Count 213 (182-369) K/mm3 MPV 10.2 (9.4-12.3) fl Neut % (Auto) 69.2 (34.0-71.1) % Lymph % (Auto) 20.2 (19.3-51.7) % [place] % (Auto) 7.6 (4.7-12.5) % Eos % (Auto) 2.1 (0.7-5.8) Baso % (Auto) 0.4 (0.1-1.2) % Neut # (Auto) 5.20 (1.56-6.13) K/mm3 Lymph # (Auto) 1.52 (1.18-3.74) K/mm3 [place] # (Auto) 0.57 H (0.24-0.36) K/mm3 Eos # (Auto) 0.16 (0.04-0.36) K/mm3 Baso # (Auto) 0.03 (0.01-0.08) K/mm3 Sodium 144 (136-145) mEq/L Potassium 3.6 (3.5-5.1) mEq/L Chloride 112 H (98-107) mEq/L Carbon Dioxide 22 (21-32) mEq/L Anion Gap 13.6 (5-15) BUN 12 (7-18) mg/dL Creatinine 0.7 (0.55-1.02) mg/dL Est Cr Clr Drug Dosing 49.85 mL/min Estimated GFR (MDRD) > 60 (>60) mL/min BUN/Creatinine Ratio 17.1 (14-18) Glucose 90 (83-115) mg/dL Calcium 8.0 L (8.5-10.1) mg/dL Magnesium 1.6 L (1.8-2.4) mg/dl Creatine Kinase 471 H (26-192) U/L 07/11/17 Range/Units 05:26 WBC 7.88 (3.98-10.04) K/mm3 RBC 3.74 L (3.98-5.22) M/mm3 Hgb 11.3 (11.2-15.7) gm/L Hct 33.5 L (34.1-44.9) % MCV 89.6 (79.4-94.8) fl MCH 30.2 (25.6-32.2) pg MCHC 33.7 (32.2-35.5) g/dl RDW Std Deviation 41.0 (36.4-46.3) fL Plt Count 215 (182-369) K/mm3 MPV 10.3 (9.4-12.3) fl Neut % (Auto) 65.6 (34.0-71.1) % Lymph % (Auto) 21.8 (19.3-51.7) % [place] % (Auto) 9.0 (4.7-12.5) % Eos % (Auto) 2.8 (0.7-5.8) Baso % (Auto) 0.4 (0.1-1.2) % Neut # (Auto) 5.17 (1.56-6.13) K/mm3 Lymph # (Auto) 1.72 (1.18-3.74) K/mm3 [place] # (Auto) 0.71 H (0.24-0.36) K/mm3 Eos # (Auto) 0.22 (0.04-0.36) K/mm3 Baso # (Auto) 0.03 (0.01-0.08) K/mm3 Sodium (136-145) mEq/L Potassium (3.5-5.1) mEq/L Chloride (98-107) mEq/L Carbon Dioxide (21-32) mEq/L Anion Gap (5-15) BUN (7-18) mg/dL Creatinine (0.55-1.02) mg/dL Est Cr Clr Drug Dosing mL/min Estimated GFR (MDRD) (>60) mL/min BUN/Creatinine Ratio (14-18) Glucose (83-115) mg/dL Calcium (8.5-10.1) mg/dL Magnesium (1.8-2.4) mg/dl Creatine Kinase (26-192) U/L Med Orders - Current: Current Medications Acetaminophen (Tylenol) 650 mg PO Q4H PRN PRN Reason: Fever Last Admin: 07/09/17 02:48 Dose: 650 mg Al Hydroxide/Mg Hydroxide (Mag-Al Plus) 30 ml PO Q4H PRN PRN Reason: Dyspepsia Allopurinol (Zyloprim) 100 mg PO DAILY [facility] Last Admin: 07/10/17 08:30 Dose: 100 mg Aspirin (Halfprin) 324 mg PO DAILY [facility] Last Admin: 07/10/17 08:27 Dose: 324 mg Bisacodyl (Dulcolax) 10 mg RECTAL DAILY PRN PRN Reason: Constipation Calcium Carbonate/Glycine (Tums) 500 mg PO Q4H PRN PRN Reason: Dyspepsia Docusate Sodium (Colace) 100 mg PO DAILY PRN PRN Reason: Constipation Enalapril Maleate (Vasotec) 20 mg PO DAILY [facility] Last Admin: 07/10/17 08:27 Dose: 20 mg Enoxaparin Sodium (Lovenox) 40 mg SUBCUT DAILY [facility] Last Admin: 07/10/17 08:31 Dose: 40 mg Hydrochlorothiazide (Hydrochlorothiazide) 25 mg PO DAILY [facility] Ibuprofen (Motrin) 600 mg PO Q6H PRN PRN Reason: Pain Last Admin: 07/11/17 03:47 Dose: 600 mg Metoprolol Succinate (Toprol Xl) 50 mg PO DAILY [facility] Last Admin: 07/10/17 08:31 Dose: 50 mg Multivitamins (Thera) 1 each PO DAILY [facility] Last Admin: 07/10/17 08:30 Dose: 1 each Simvastatin (Zocor) 20 mg PO BEDTIME [facility] Last Admin: 07/10/17 20:36 Dose: 20 mg Sodium Chloride (Saline Flush) 10 ml FLUSH ASDIRECTED PRN PRN Reason: Keep Vein Open Last Admin: 07/08/17 19:52 Dose: 10 ml Tramadol HCl (Ultram) 50 mg PO Q4H PRN PRN Reason: Pain Last Admin: 07/09/17 07:41 Dose: 25 mg Discontinued Medications Sodium Chloride (Normal Saline) 1,000 mls @ 999 mls/hr IV ONETIME ONE Stop: 07/08/17 20:41 Last Admin: 07/08/17 19:52 Dose: 100 mls/hr Sodium Chloride (Normal Saline) 1,000 mls @ 125 mls/hr IV ASDIRECTED [facility] Last Admin: 07/10/17 00:17 Dose: 125 mls/hr Magnesium Sulfate 2 gm/ Premix 50 mls @ 25 mls/hr IV ONETIME ONE Stop: 07/09/17 10:51 Last Admin: 07/09/17 09:34 Dose: 25 mls/hr Magnesium Sulfate 2 gm/ Premix 50 mls @ 25 mls/hr IV ONETIME ONE Stop: 07/09/17 12:59 Last Admin: 07/09/17 11:42 Dose: 25 mls/hr Magnesium Sulfate 2 gm/ Premix 50 mls @ 25 mls/hr IV ONETIME ONE Stop: 07/10/17 11:35 Last Admin: 07/10/17 10:21 Dose: 25 mls/hr Pneumococcal Polyvalent Vaccine (Pneumovax 23) 0.5 ml IM .ONCE ONE Stop: 07/09/17 03:26 Potassium Chloride (Klor-Con M20) 40 meq PO ONETIME ONE Stop: 07/09/17 08:53 Last Admin: 07/09/17 09:34 Dose: 40 meq - Exam Quality Assessment: Reports: DVT Prophylaxis General: Reports: Alert, Cooperative, No Acute Distress HEENT: Reports: Pupils Equal, EOMI, Mucous Membr. Moist/[place] Neck: Reports: Supple Lungs: Reports: Clear to Auscultation, Normal Respiratory Effort Cardiovascular: Reports: Regular Rate, Regular Rhythm GI/Abdominal Exam: Normal Bowel Sounds, Soft (Female) Exam: Deferred Rectal (Female) Exam: Deferred Back Exam: Reports: Normal Inspection Extremities: No Pedal Edema, Normal Capillary Refill Neurological: Reports: No New Focal Deficit Psy/Mental Status: Reports: Alert, Normal Affect, Normal Mood *Q Meaningful Use (DIS) - VTE *Q VTE Criteria *Q: - Stroke *Q Stroke Criteria *Q: - AMI *Q AMI Criteria *Q:
[2017-07-11] MEDS ORDERED: Hydrochlorothiazide 25 MG Tab PO SCH (07:00)
[2017-07-11] MEDS: Aspirin 81 MG Tab.EC PO SCH (08:19)
[2017-07-11] MEDS: Enoxaparin 40 MG/0.4 ML Syringe SUBCUT SCH (08:19)
[2017-07-11] MEDS: Multivitamins,Therapeutic Tab PO SCH (08:20)
[2017-07-11] MEDS: Metoprolol Succinate 50 MG Tab.ER PO SCH (08:22)
[2017-07-11] MEDS: Allopurinol 100 MG Tab PO SCH (08:23)
[2017-07-11] MEDS ORDERED: Potassium Chloride 20 MEQ Tab.ER PO ONE (09:00)
[2017-07-11] MEDS ORDERED: Magnesium Oxide 400 MG Tab PO ONE (09:00)
[2017-07-11] MEDS ORDERED: Pneumococcal 13-Valent Conjugate Vaccine 0.5 ML Syringe IM ONE (12:15)
== END 2017-07-11 12:43 | DRG 66 ==
LOC: JD.ED 19:16 → JD.ICU 22:32 → JD.MS 07-09 14:30
PROVIDERS: ADMIT Internal Medicine Cardiovascular Disease; ATTEND Internal Medicine Cardiovascular Disease
DX: I63.9 Cerebral infarction, unspecified (principal); T79.6XXA Traumatic ischemia of muscle, initial encounter; X58.XXXA Exposure to other specified factors, initial encounter; I10 Essential (primary) hypertension; G89.29 Other chronic pain; M54.9 Dorsalgia, unspecified; Z87.440 Personal history of urinary (tract) infections; H54.7 Unspecified visual loss; R53.1 Weakness; E87.6 Hypokalemia; R74.8 Abnormal levels of other serum enzymes; E78.5 Hyperlipidemia, unspecified; Z88.8 Allergy status to other drugs, medicaments and biological substances; Z79.899 Other long term (current) drug therapy; Z23 Encounter for immunization
CPT/HCPCS: 36415; 70450; 71010; 80053; 81001; 82550; 83605; 84484; 85025; 85610; 85730; 86140; 87040 ×2; 87086; 93005; 96360; 96361; 99285; J7040; J7050; P9612; 70551; 70551-26; 80048; 80061; 83735; 90670; 92610-GN; 93010; 93306; 93880; 93880-26; 97110-GO; 97110-GP; 97116-GP; 97162-GP; 97166-GO; 97530-GO; 97530-GP; 97535-GO; 99284; A9270-GY; G0009; J1650; J3475

== ENCOUNTER 2018-02-02 01:47 | Emergency (ER) | payer MEDICARE, BC ==
--- NOTE | 2018-02-02 02:07 | EDM.PDOC ---
ED HPI GENERAL MEDICAL PROBLEM - General Chief Complaint: Genitourinary Problem Stated Complaint: UNABLE TO URINATE Time Seen by Provider: 02/02/18 01:56 Source of Information: Reports: Patient, Family History Limitations: Reports: No Limitations - History of Present Illness INITIAL COMMENTS - FREE TEXT/NARRATIVE: This is an 83-year-old female. She has a history of urinary retention and that sort of comes and goes. She was placed on some Flomax recently for this problem. She states that today she has been going just very small amounts and she is only wet her pull-ups twice. This evening around 7 PM she has not been able to urinate and she comes to the ER because she is complaining of lower abdominal pain and distention. According to the family this is not unusual and at times she has to be cathed in the home where she is staying in order to relieve this but it is just an in and out catheter if they do. She denies any fever or chills denies any nausea or vomiting. Suprapubic Pain Score (Numeric/FACES): 10 - Related Data Allergies Allergy/AdvReac Type Severity Reaction Status Date / Time codeine Allergy Hives Verified 07/09/17 03:12 losartan [From Cozaar] Allergy Hives Verified 07/09/17 03:12 Home Meds: Home Meds Allopurinol [Zyloprim] 100 mg PO DAILY 07/08/17 [History] Enalapril [Vasotec] 20 mg PO DAILY 07/08/17 [History] Metoprolol Succinate 100 mg PO DAILY 07/08/17 [History] Multivits,Ca,Minerals/Iron/FA [One-A-Day Women's] 1 tab PO DAILY 07/08/17 [ History] atorvaSTATin [Lipitor] 20 mg PO DAILY 07/08/17 [History] Alum Hydrox/Mag Hydrox/Simeth [Mag-Al Plus] 30 ml PO Q4H PRN cup 07/11/17 [Rx] Aspirin [Halfprin] 324 mg PO DAILY #30 tab.ec 07/11/17 [Rx] Calcium Carbonate [Tums] 500 mg PO Q4H PRN tab.chew 07/11/17 [Rx] Docusate Sodium [Colace] 100 mg PO DAILY PRN cap 07/11/17 [Rx] Ibuprofen [IJD: Ibuprofen] 600 mg PO Q6H PRN tablet 07/11/17 [Rx] Magnesium Oxide 400 mg PO DAILY #30 tablet 07/11/17 [Rx] Acetaminophen [Tylenol] 650 mg PO Q8H 02/02/18 [History] Cephalexin 500 mg PO TID #21 tablet 02/02/18 [Rx] amLODIPine Besylate [Norvasc] 5 mg PO DAILY 02/02/18 [History] Past Medical History HEENT History: Reports: Other (See Below) Other HEENT History: wears glasses Cardiovascular History: Reports: Hypertension Genitourinary History: Reports: UTI, Recurrent Musculoskeletal History: Reports: Back Pain, Chronic - Infectious Disease History Infectious Disease History: Reports: Chicken Pox, Measles, Mumps - Past Surgical History Female Surgical History: Reports: Hysterectomy Social & Family History - Family History Family Medical History: Noncontributory - Tobacco Use Smoking Status *Q: Never Smoker - Caffeine Use Caffeine Use: Reports: Coffee, Soda, Tea - Recreational Drug Use Recreational Drug Use: No ED ROS GENERAL - Review of Systems Review Of Systems: See Below Constitutional: Denies: Fever, Chills HEENT: Reports: No Symptoms Respiratory: Reports: No Symptoms Cardiovascular: Reports: No Symptoms Endocrine: Reports: No Symptoms GI/Abdominal: Reports: Abdominal Pain : Reports: Urinary Retention Musculoskeletal: Reports: No Symptoms Skin: Reports: No Symptoms Neurological: Reports: No Symptoms Psychiatric: Reports: No Symptoms Hematologic/Lymphatic: Reports: No Symptoms ED EXAM, RENAL/ - Physical Exam Exam: See Below Exam Limited By: No Limitations General Appearance: Alert, WD/WN, Mild Distress Eye Exam: Bilateral Eye: Normal Inspection Ears: Normal External Exam Nose: Normal Inspection Throat/Mouth: Normal Inspection, Normal Lips, Normal Voice, No Airway Compromise Head: Normocephalic Neck: Supple Respiratory/Chest: No Respiratory Distress GI/Abdominal: Other (Bowel sounds are present, the upper abdomen is soft and nontender, the bladder itself appears to be distended and very tender on palpation) Back Exam: Full Range of Motion Extremities: Normal Inspection, Normal Range of Motion Neurological: Alert, Oriented Psychiatric: Normal Affect, Normal Mood Skin Exam: Warm, Dry Course - Vital Signs Last Recorded V/S: Last Vital Signs Temp 97.5 F 02/02/18 01:57 Pulse 87 02/02/18 01:57 Resp 16 02/02/18 01:57 BP 134/76 02/02/18 01:57 Pulse Ox 96 02/02/18 01:57 - Orders/Labs/Meds Labs: Laboratory Tests 02/02/18 Range/Units 02:21 Urine Color Yellow (Yellow) Urine Appearance Turbid H (Clear) Urine pH 7.5 (5.0-8.0) Ur Specific [place] 1.020 (1.005-1.030) Urine Protein 2+ H (Negative) Urine Glucose (UA) Negative (Negative) Urine Ketones Negative (Negative) Urine Occult Blood 2+ H (Negative) Urine Nitrite Positive H (Negative) Urine Bilirubin Negative (Negative) Urine Urobilinogen 0.2 (0.2-1.0) Ur Leukocyte Esterase 3+ H (Negative) Urine RBC 0-5 (0-5) /hpf Urine WBC Too numerous to cnt H (0-5) /hpf Urine WBC Clumps Many (NOT SEEN) /hpf Ur Epithelial Cells 0-5 (0-5) /hpf Amorphous Sediment Many H (NOT SEEN) /hpf Urine Bacteria Moderate H (FEW) /hpf Urine Mucus Not seen (FEW) /hpf - Re-Assessments/Exams Free Text/Narrative Re-Assessment/Exam: 02/02/18 02:53 The patient had about 600 mL out with a catheter now feels good. Her bladder is no longer distended. I explained to her and her daughter that she has a urinary tract infection and treated with some Septra DS for about 7 days. I'm little concerned and expressed my concern to the family and the patient that if we take the catheter out she might stop up again if there is inflammation going on in the bladder with the infection but they still want to have the catheter removed. Departure - Departure Time of Disposition: 02:55 Disposition: Home, Self-Care 01 Condition: Good Clinical Impression: Urinary retention Urinary tract infection Qualifiers: Urinary tract infection type: acute cystitis Hematuria presence: without hematuria Qualified Code(s): N30.00 - Acute cystitis without hematuria - Discharge Information Prescriptions: Cephalexin 500 mg PO TID #21 tablet Referrals: Ap Cooper MD [Primary Care Provider] - Forms: ED Department Discharge Additional Instructions: Continue with your normal medications, take the antibiotics faithfully 3 times a day until they're finished, we did culture the urine to make sure the antibiotics will cover the bacteria, if you have further problems with urinary retention and it gets to hurting like it was tonight return to the ER, follow up with your family doctor later this week for recheck
[2018-02-02] MEDS ORDERED: Cephalexin 500 MG Cap PO ONE (02:53)
== END 2018-02-02 03:08 | disposition home or self-care (01) ==
LOC: JD.ED 01:47
DX: N30.00 Acute cystitis without hematuria (principal); I10 Essential (primary) hypertension; Z88.5 Allergy status to narcotic agent; Z79.899 Other long term (current) drug therapy; Z88.8 Allergy status to other drugs, medicaments and biological substances; Z79.82 Long term (current) use of aspirin
CPT/HCPCS: 51702; 81001; 87086; 99283; A9270

== ENCOUNTER 2018-02-02 19:10 | Emergency (ER) | payer MEDICARE, BC ==
--- NOTE | 2018-02-02 20:05 | EDM.PDOC ---
ED HPI GENERAL MEDICAL PROBLEM - General Chief Complaint: Genitourinary Problem Stated Complaint: TROUBLE URINATING Time Seen by Provider: 02/02/18 19:37 Source of Information: Reports: Patient, Family (Daughter), Old Records History Limitations: Reports: No Limitations - History of Present Illness INITIAL COMMENTS - FREE TEXT/NARRATIVE: Medical records indicate that the patient was seen by Dr. Youngblood early this morning with a complaint of the inability to urinate since around 19:00 last evening. The patient has a history of urinary retention, and was recently started on Flomax per her [place] Urologist, whose name she cannot recall. The patient self catheterizes at home, therefore it is unclear why this was not done and why she needed to come to the ED. The patient complained of lower abdominal pain and distention, however, she had no fever, chills, nausea, or vomiting. On examination, her abdomen appear to be distended, and she was very tender to palpation. She was catheterized, recovering 600 mL of urine. Urinalysis was consistent with a UTI. A urine culture was sent. The patient was started on Keflex, and prescribed a seven-day course. Dr. Youngblood documented that he recommended that the catheter be kept in place, however, the patient and her daughter insisted that it be removed. The patient now returns to the ED stating that she is having difficulty urinating since around 10 AM. She states that she only has small squirts of urine when she tries to void. She is complaining of bladder spasms. The patient's PCP is Dr. Cooper. Bladder Pain Score (Numeric/FACES): 10 - Related Data Allergies Allergy/AdvReac Type Severity Reaction Status Date / Time codeine Allergy Hives Verified 07/09/17 03:12 losartan [From Cozaar] Allergy Hives Verified 07/09/17 03:12 Home Meds: Home Meds Allopurinol [Zyloprim] 100 mg PO DAILY 07/08/17 [History] Enalapril [Vasotec] 20 mg PO DAILY 07/08/17 [History] Metoprolol Succinate 100 mg PO DAILY 07/08/17 [History] Multivits,Ca,Minerals/Iron/FA [One-A-Day Women's] 1 tab PO DAILY 07/08/17 [ History] atorvaSTATin [Lipitor] 20 mg PO DAILY 07/08/17 [History] Alum Hydrox/Mag Hydrox/Simeth [Mag-Al Plus] 30 ml PO Q4H PRN cup 07/11/17 [Rx] Aspirin [Halfprin] 324 mg PO DAILY #30 tab.ec 07/11/17 [Rx] Calcium Carbonate [Tums] 500 mg PO Q4H PRN tab.chew 07/11/17 [Rx] Docusate Sodium [Colace] 100 mg PO DAILY PRN cap 07/11/17 [Rx] Ibuprofen [IJD: Ibuprofen] 600 mg PO Q6H PRN tablet 07/11/17 [Rx] Magnesium Oxide 400 mg PO DAILY #30 tablet 07/11/17 [Rx] Acetaminophen [Tylenol] 650 mg PO Q8H 02/02/18 [History] Cephalexin 500 mg PO TID #21 tablet 02/02/18 [Rx] amLODIPine Besylate [Norvasc] 5 mg PO DAILY 02/02/18 [History] Past Medical History HEENT History: Reports: Other (See Below) Other HEENT History: wears glasses Cardiovascular History: Reports: High Cholesterol, Hypertension Gastrointestinal History: Reports: GERD Genitourinary History: Reports: Retention, Urinary Musculoskeletal History: Reports: Back Pain, Chronic - Infectious Disease History Infectious Disease History: Reports: Chicken Pox, Measles, Mumps - Past Surgical History HEENT Surgical History: Reports: Cataract Surgery GI Surgical History: Reports: Cholecystectomy Female Surgical History: Reports: Hysterectomy Neurological Surgical History: Reports: Lumbar Spine (fusion) Musculoskeletal Surgical History: Reports: Hip Replacement (left, partial) Social & Family History - Family History Family Medical History: Noncontributory - Tobacco Use Smoking Status *Q: Former Smoker Years of Tobacco use: 29 Packs/Tins Daily: 0.5 Month/Year Tobacco Last Used: Quit around 1982 - Caffeine Use Caffeine Use: Reports: Coffee - Alcohol Use Alcohol Use History: No - Recreational Drug Use Recreational Drug Use: No - Living Situation & Occupation Living situation: Reports: , Alone Occupation: Retired ED ROS GENERAL - Review of Systems Review Of Systems: ROS reveals no pertinent complaints other than HPI. ED EXAM, RENAL/ - Physical Exam Exam: See Below Exam Limited By: No Limitations General Appearance: Alert, WD/WN, Mild Distress (Appears uncomfortable) Eye Exam: Bilateral Eye: Normal Inspection Ears: Normal External Exam, Hearing Grossly Normal Nose: Normal Inspection, No Blood Throat/Mouth: Normal Inspection, Normal Lips, Normal Voice, No Airway Compromise Head: Atraumatic, Normocephalic Neck: Normal Inspection, Full Range of Motion Respiratory/Chest: No Respiratory Distress, Lungs Clear, Normal Breath Sounds, No Accessory Muscle Use Cardiovascular: Normal Peripheral Pulses, Regular Rate, Rhythm, No Gallop, No JVD, No Murmur, No Rub GI/Abdominal: Normal Bowel Sounds, Soft, No Organomegaly, No Abnormal Bruit, No Mass, Distended (lower abdomen), Tender (Suprapubically only. Nontender elsewhere.) (Female) Exam: Deferred Rectal (Female) Exam: Deferred Back Exam: Normal Inspection, Full Range of Motion. No: CVA Tenderness (L), CVA Tenderness (R) Extremities: Normal Inspection, Normal Range of Motion, Normal Capillary Refill Neurological: Alert, Oriented, Normal Cognition, No Motor/Sensory Deficits Psychiatric: Normal Affect Skin Exam: Warm, Dry, Intact, Normal Color, No Rash Course - Vital Signs Last Recorded V/S: Last Vital Signs Temp 36.6 C 02/02/18 19:34 Pulse 93 02/02/18 19:34 Resp 20 02/02/18 19:34 BP 136/57 L 02/02/18 19:34 Pulse Ox 98 02/02/18 19:34 - Orders/Labs/Meds Orders: Active Orders 24 hr Category Date Time Status Ricketts Catheter Insertion [Insert Urinary Catheter] [OM. Care 02/02/18 20:15 Ordered PC] Q24H Urinary Catheter Assessment [RC] ASDIRECTED Care 02/02/18 20:02 Active - Re-Assessments/Exams Free Text/Narrative Re-Assessment/Exam: 02/02/18 19:59 The patient has a history of urinary retention. She was seen in this ED early this morning, found to have urinary retention and a UTI. She was started on Keflex. Dr. Raman recommended that a Ricketts be placed to a leg bag, but the patient and her daughter refused. The patient now returns with the same problem , however, this time they have agreed to have a Ricketts placed to a leg bag. I will have the patient continue to take the Flomax that she was recently started on, as well as the Keflex that she was prescribed this morning. I will have the patient follow-up with her Urologist, whose name she does not recall, in [place], within the next few days. If, for some reason, the patient cannot get in to see her Urologist, I would have her follow-up with her PCP, Dr. Cooper. 02/02/18 20:33 Notified by Anna LUTZ that the Ricketts drained 450 ml of urine. Departure - Departure Time of Disposition: 20:00 Disposition: Home, Self-Care 01 Condition: Good Clinical Impression: Urinary retention - Discharge Information Instructions: Acute Urinary Retention, Female, [id number] Referrals: Ap Cooper MD [Primary Care Provider] - Forms: ED Department Discharge Additional Instructions: You were seen in the emergency room for the inability to urinate since 10:00 this morning. A Ricketts catheter was placed in the ER, draining 450 mL of urine. Empty the leg bag as instructed by the ER nurse. At night, make sure that the bag is lower than your body, so that urine does not back flow into your bladder. Call the office of your Urologist in [place] tomorrow morning, to make an appointment within the next few days. Make sure that you tell the production material handler that this is an ER follow-up, and that a Ricketts catheter was placed. If you are unable to get into see your Urologist within the next few days, please follow-up with your PCP, Dr. Cooper, within a few days. Continue to take the Flomax that was prescribed to recently, and the Keflex ( cephalexin) that was prescribed to this morning. Stay adequately hydrated. If any other problems, please do not hesitate to return to the ER. - My Orders Last 24 Hours: My Active Orders 02/02/18 20:02 Urinary Catheter Assessment [RC] ASDIRECTED 02/02/18 20:15 Ricketts Catheter Insertion [Insert Urinary Catheter] [OM.PC] Q24H - Assessment/Plan Last 24 Hours: My Active Orders 02/02/18 20:02 Urinary Catheter Assessment [RC] ASDIRECTED 02/02/18 20:15 Ricketts Catheter Insertion [Insert Urinary Catheter] [OM.PC] Q24H
== END 2018-02-02 20:32 | disposition home or self-care (01) ==
LOC: JD.ED 19:10
DX: R33.9 Retention of urine, unspecified (principal); I10 Essential (primary) hypertension; Z87.891 Personal history of nicotine dependence; Z88.5 Allergy status to narcotic agent; Z79.899 Other long term (current) drug therapy
CPT/HCPCS: 51702; 99283-25

== ENCOUNTER 2018-08-04 16:39 | Emergency (ER) | payer MEDICARE, BC ==
--- NOTE | 2018-08-04 18:00 | EDM.PDOC ---
ED HPI GENERAL MEDICAL PROBLEM - General Chief Complaint: Genitourinary Problem Stated Complaint: CAN'T PEE Time Seen by Provider: 08/04/18 17:03 Source of Information: Reports: Patient, Family History Limitations: Reports: No Limitations - History of Present Illness INITIAL COMMENTS - FREE TEXT/NARRATIVE: The patient presents with urinary retention and severe abdominal pain. She had trouble urinating in the past and she had a trevizo cath in. She saw the urologist today and they took out the catheter. The patient has not been able to urinate since about 1pm. She is in severe pain. Onset: Gradual Duration: Hour(s): Location: Reports: Abdomen Quality: Reports: Sharp Severity: Severe Improves with: Reports: None Worsens with: Reports: None Associated Symptoms: Reports: No Other Symptoms Bladder Pain Score (Numeric/FACES): 10 - Related Data Allergies Allergy/AdvReac Type Severity Reaction Status Date / Time codeine Allergy Hives Verified 08/04/18 17:10 losartan [From Cozaar] Allergy Hives Verified 08/04/18 17:10 Home Meds: Home Meds Allopurinol [Zyloprim] 100 mg PO DAILY 07/08/17 [History] Enalapril [Vasotec] 20 mg PO DAILY 07/08/17 [History] Metoprolol Succinate 100 mg PO DAILY 07/08/17 [History] Multivits,Ca,Minerals/Iron/FA [One-A-Day Women's] 1 tab PO DAILY 07/08/17 [ History] atorvaSTATin [Lipitor] 20 mg PO DAILY 07/08/17 [History] Alum Hydrox/Mag Hydrox/Simeth [Mag-Al Plus] 30 ml PO Q4H PRN cup 07/11/17 [Rx] Calcium Carbonate [Tums] 500 mg PO Q4H PRN tab.chew 07/11/17 [Rx] Docusate Sodium [Colace] 100 mg PO DAILY PRN cap 07/11/17 [Rx] Ibuprofen [IJD: Ibuprofen] 600 mg PO Q6H PRN tablet 07/11/17 [Rx] Magnesium Oxide 400 mg PO DAILY #30 tablet 07/11/17 [Rx] Acetaminophen [Tylenol] 650 mg PO Q8H 02/02/18 [History] amLODIPine Besylate [Norvasc] 5 mg PO DAILY 02/02/18 [History] Aspirin [Halfprin] 325 mg PO DAILY 08/04/18 [History] Nitrofurantoin [place]/Macrocryst [Nitrofurantoin [place]-MCR] 100 mg PO Q12H [History] Past Medical History - Past Health History Medical/Surgical History: Denies Medical/Surgical History HEENT History: Reports: Impaired Vision, Other (See Below) Other HEENT History: wears glasses Cardiovascular History: Reports: High Cholesterol, Hypertension Respiratory History: Reports: Pneumonia, Recurrent Gastrointestinal History: Reports: GERD Genitourinary History: Reports: Retention, Urinary 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 - Infectious Disease History Infectious Disease History: Reports: Chicken Pox, Measles, Mumps - Past Surgical History HEENT Surgical History: Reports: Cataract Surgery GI Surgical History: Reports: Cholecystectomy Female Surgical History: Reports: Hysterectomy Neurological Surgical History: Reports: Spinal Fusion Musculoskeletal Surgical History: Reports: Hip Replacement, Other (See Below) Other Musculoskeletal Surgeries/Procedures:: back surgery. Social & Family History - Family History Family Medical History: Noncontributory - Tobacco Use Smoking Status *Q: Never Smoker Second Hand Smoke Exposure: No - Caffeine Use Caffeine Use: Reports: Coffee, Tea - Recreational Drug Use Recreational Drug Use: No - Living Situation & Occupation Living situation: Reports: , Alone Occupation: Retired ED ROS GENERAL - Review of Systems Review Of Systems: See Below Constitutional: Reports: No Symptoms HEENT: Reports: No Symptoms Respiratory: Reports: No Symptoms Cardiovascular: Reports: No Symptoms Endocrine: Reports: No Symptoms GI/Abdominal: Reports: Abdominal Pain. Denies: Nausea, Vomiting : Reports: Urinary Retention ED EXAM, RENAL/ - Physical Exam Exam: See Below Text/Narrative:: The assessment was done post trevizo cath insertion by my nurse. That was done per protocol. Exam Limited By: No Limitations General Appearance: Alert, No Apparent Distress Ears: Normal External Exam Nose: Normal Inspection Head: Atraumatic, Normocephalic Neck: Normal Inspection Respiratory/Chest: No Respiratory Distress, Lungs Clear, Normal Breath Sounds Cardiovascular: Regular Rate, Rhythm, No Edema, No Murmur GI/Abdominal: Soft, Non-Tender, No Organomegaly, No Mass (Female) Exam: Other (Trevizo cath in place and there is good urine output) Course - Vital Signs Last Recorded V/S: Last Vital Signs Temp 97.6 F 08/04/18 16:45 Pulse 84 08/04/18 16:45 Resp 18 08/04/18 16:45 BP 171/74 H 08/04/18 16:45 Pulse Ox 99 08/04/18 16:45 - Orders/Labs/Meds Orders: Active Orders 24 hr Category Date Time Status Insert Trevizo Catheter [Insert Urinary Catheter] [OM.PC] Care 08/04/18 17:05 Ordered Q24H Urinary Catheter Assessment [RC] ASDIRECTED Care 08/04/18 17:05 Active UA W/MICROSCOPIC [URIN] Stat Lab 08/04/18 17:05 Results Labs: Laboratory Tests 08/04/18 Range/Units 17:05 Urine Color Yellow (Yellow) Urine Appearance Clear (Clear) Urine pH 7.0 (5.0-8.0) Ur Specific [place] 1.010 (1.005-1.030) Urine Protein 1+ H (Negative) Urine Glucose (UA) Negative (Negative) Urine Ketones Negative (Negative) Urine Occult Blood 3+ H (Negative) Urine Nitrite Negative (Negative) Urine Bilirubin Negative (Negative) Urine Urobilinogen 1.0 (0.2-1.0) Ur Leukocyte Esterase Negative (Negative) - Re-Assessments/Exams Free Text/Narrative Re-Assessment/Exam: 08/04/18 17:59 My nurse put the trevizo cath in before I could make it to the room. The patient feels much better. I have sent over a urine. 08/04/18 18:15 Her urine looks good. I will discharge her home. Departure - Departure Time of Disposition: 18:15 Disposition: Home, Self-Care 01 Condition: Good Clinical Impression: Urinary retention - Discharge Information *PRESCRIPTION DRUG MONITORING PROGRAM REVIEWED*: No *COPY OF PRESCRIPTION DRUG MONITORING REPORT IN PATIENT KHARI: No Referrals: Ap Cooper MD [Primary Care Provider] - Forms: ED Department Discharge Additional Instructions: Take your medication as prescribed. Please return if you are worse. - My Orders Last 24 Hours: My Active Orders 08/04/18 17:05 Insert Trevizo Catheter [Insert Urinary Catheter] [OM.PC] Q24H Urinary Catheter Assessment [RC] ASDIRECTED UA W/MICROSCOPIC [URIN] Stat - Assessment/Plan Last 24 Hours: My Active Orders 08/04/18 17:05 Insert Trevizo Catheter [Insert Urinary Catheter] [OM.PC] Q24H Urinary Catheter Assessment [RC] ASDIRECTED UA W/MICROSCOPIC [URIN] Stat
== END 2018-08-04 18:34 | disposition home or self-care (01) ==
LOC: JD.ED 16:39
DX: R33.9 Retention of urine, unspecified (principal); E78.00 Pure hypercholesterolemia, unspecified; I10 Essential (primary) hypertension; K21.9 Gastro-esophageal reflux disease without esophagitis; F32.9 Major depressive disorder, single episode, unspecified; Z88.8 Allergy status to other drugs, medicaments and biological substances; Z88.5 Allergy status to narcotic agent; Z79.899 Other long term (current) drug therapy; Z96.0 Presence of urogenital implants
CPT/HCPCS: 51702; 81001; 99282; 99283-25

== ENCOUNTER 2022-07-26 03:32 | Emergency (ER) | payer MEDICARE, BC | END 2022-07-26 06:53 | disposition home or self-care (01) | LOC: JD.ED 03:32 | DX: T83.098A Other mechanical complication of other urinary catheter, initial encounter (principal); E78.00 Pure hypercholesterolemia, unspecified; I10 Essential (primary) hypertension; K21.9 Gastro-esophageal reflux disease without esophagitis; Z88.5 Allergy status to narcotic agent; Z88.8 Allergy status to other drugs, medicaments and biological substances; Z79.899 Other long term (current) drug therapy; Z90.49 Acquired absence of other specified parts of digestive tract; Z90.710 Acquired absence of both cervix and uterus; Z87.891 Personal history of nicotine dependence | CPT/HCPCS: 51702; 87086; 87088; 87186; 99283 ==

== ENCOUNTER 2023-08-08 23:58 | Emergency (ER) | payer MEDICARE, BC | END 2023-08-09 00:30 | disposition home or self-care (01) | LOC: JD.ED 23:58 | DX: T83.031A Leakage of indwelling urethral catheter, initial encounter (principal); I10 Essential (primary) hypertension; E78.00 Pure hypercholesterolemia, unspecified; K21.9 Gastro-esophageal reflux disease without esophagitis; Z86.73 Personal history of transient ischemic attack (TIA), and cerebral infarction without residual deficits; Z90.49 Acquired absence of other specified parts of digestive tract; Z90.710 Acquired absence of both cervix and uterus; Z79.899 Other long term (current) drug therapy; Z88.5 Allergy status to narcotic agent; Z88.8 Allergy status to other drugs, medicaments and biological substances | CPT/HCPCS: 99283 ==

== ENCOUNTER 2024-07-21 14:20 | Emergency (ER) | payer MEDICARE, BC | END 2024-07-21 18:04 | disposition left against medical advice (07) | LOC: JD.ED 14:20 | DX: R45.4 Irritability and anger (principal); I10 Essential (primary) hypertension; K21.9 Gastro-esophageal reflux disease without esophagitis; Z90.49 Acquired absence of other specified parts of digestive tract; Z90.710 Acquired absence of both cervix and uterus; Z79.899 Other long term (current) drug therapy; Z88.8 Allergy status to other drugs, medicaments and biological substances; Z88.5 Allergy status to narcotic agent | CPT/HCPCS: 99283 ==

== ENCOUNTER 2024-08-02 20:20 | Inpatient (IN) | payer MEDICARE, BC ==
[2024-08-02] MEDS ORDERED: Sodium Chloride 0.9% 10 ML Syringe FLUSH PRN (20:34)
[2024-08-02 20:44] LABS: BASOPHILS PERCENT AUTO 0.4 % (0.0-1.0); EOSINOPHILS ABSOLUTE AUTO 0.1 K/mm3 (0.0-0.4); EOSINOPHILS PERCENT AUTO 1.4 % (0.0-6.0); HEMATOCRIT 38.4 % (37.0-47.0); HEMOGLOBIN 12.7 gm/dl (12.0-16.0); IMMATURE GRAN ABSOLUTE AUTO 0.08 K/mm3 (0.00-0.05); IMMATURE GRAN PERCENT AUTO 0.8 % (0.0-0.4); LYMPHOCYTES ABSOLUTE AUTO 1.7 K/mm3 (1.0-4.8); LYMPHOCYTES PERCENT AUTO 17.5 % (24.0-44.0); MEAN CORPUSCULAR HEMOGLOBIN 33.2 pg (28.0-32.0); MEAN CORPUSCULAR HGB CONC 33.1 g/dl (32.0-36.0); MEAN CORPUSCULAR VOLUME 100.3 fl (83.0-99.0); MEAN PLATELET VOLUME 9.3 fl (9.4-12.3); MONOCYTES ABSOLUTE AUTO 0.7 K/mm3 (0.0-0.8); MONOCYTES PERCENT AUTO 7.6 % (0.0-8.0); NEUTROPHILS PERCENT AUTO 72.3 % (41.0-71.0); PLATELET COUNT,PLT 270 K/mm3 (150-400); RED BLOOD CELL COUNT 3.83 M/mm3 (4.10-5.30); WHITE BLOOD CELL COUNT,WBC 9.75 K/mm3 (3.9-11.3)
[2024-08-02 20:49] LABS: APPEARANCE,URINE CLOUDY (Clear); BILIRUBIN,URINE NEGATIVE (Negative); COLOR,URINE YELLOW (Yellow); GLUCOSE,URINE NEGATIVE (Negative); KETONES,URINE NEGATIVE (Negative); LEUKOCYTE ESTERASE,URINE 2+ (Negative); NITRITE,URINE NEGATIVE (Negative); OCCULT BLOOD,URINE TRACE-LYSED (Negative); PH,URINE 5.5 (5.0-8.0); PROTEIN,URINE 2+ (Negative); UROBILINOGEN,URINE 0.2 (0.2-1.0)
[2024-08-02 20:52] LABS: BASE EXCESS VENOUS -5.5 (-4.0-2.0); BICARBONATE,VENOUS 19.4 meq/L (22-26); O2 SATURATION VENOUS 75.1; PH,VENOUS 7.33 (7.30-7.40)
[2024-08-02 21:02] LABS: BACTERIA,URINE MANY /hpf (FEW); MUCUS,URINE NOT SEEN /hpf (FEW); RBC,URINE 0-5 /hpf (0-5); SQUAMOUS EPITHELIAL CELLS,UR 0-5 /hpf (0-5); WBC,URINE >100 /hpf (0-5)
[2024-08-02 21:12] LABS: ALBUMIN 3.5 g/dl (3.4-5.0); ANION GAP 17.8 (5-15); BILIRUBIN TOTAL 0.6 mg/dL (0.2-1.0); BUN/CREATININE RATIO 31.3 (14-18); CALCIUM 8.6 mg/dL (8.5-10.1); CREATININE 1.5 mg/dL (0.55-1.02); EST CRCL DRUG DOSING (CG) 25.99 mL/min; MAGNESIUM 1.7 mg/dL (1.8-2.4); PROTEIN TOTAL,TP 7.2 g/dl (6.4-8.2); TSH 0.889 uIU/mL (0.358-3.74)
[2024-08-02 21:13] LABS: POTASSIUM,K 3.8 mEq/L (3.5-5.1)
[2024-08-02] MEDS ORDERED: cefTRIAXone 1 GM in Sodium Chloride 0.9% 50 ML IV ONE (22:01)
[2024-08-02] MEDS: Sodium Chloride 0.9% 500 ML IV ONE (22:14)
[2024-08-02] MEDS: cefTRIAXone 1 GM in Water For Injection, Sterile 10 ML IV ONE (22:15)
[2024-08-03] MEDS ORDERED: Polyethylene Glycol 3350 Powder 17 GM Packet PO PRN (08:42)
[2024-08-03] MEDS ORDERED: Docusate Sodium 100 MG Cap PO PRN (08:42)
[2024-08-03] MEDS ORDERED: Ondansetron 4 MG/2 ML SDV IV PRN (08:42)
[2024-08-03] MEDS: Pantoprazole 40 MG Tab.CR PO SCH (09:07)
[2024-08-03] MEDS: Metoprolol Succinate 50 MG Tab.ER PO SCH (09:07)
[2024-08-03] MEDS: amLODIPine 5 MG Tab PO SCH (09:08)
[2024-08-03] MEDS: Magnesium Oxide 400 MG Tab PO SCH (09:08)
[2024-08-03] MEDS: Lisinopril 20 MG Tab PO SCH (09:08)
[2024-08-03] MEDS: Magnesium Sulfate/Water Premix 2 GM in Premix Bag 1 BAG IV ONE (09:09)
[2024-08-03] MEDS: Enoxaparin 30 MG/0.3 ML Syringe SUBCUT SCH (09:09)
[2024-08-03] MEDS: atorvaSTATin 20 MG Tab PO SCH (09:09)
[2024-08-03] MEDS: Acetaminophen 325 MG Tab PO PRN (13:21)
[2024-08-03] MEDS: Lidocaine 4% 1 each Patch TOP SCH (14:44)
[2024-08-03] MEDS: traZODone 50 MG Tab PO SCH (20:30)
[2024-08-03] MEDS: Potassium Chloride 20 MEQ Tab.ER PO SCH (20:30)
[2024-08-03] MEDS ORDERED: Sertraline 50 MG Tab PO SCH (21:00)
[2024-08-03] MEDS ORDERED: Lisinopril 20 MG Tab PO SCH (21:00)
[2024-08-03] MEDS ORDERED: cefTRIAXone 1 GM in Sodium Chloride 0.9% 50 ML IV SCH (22:00)
[2024-08-03] MEDS: cefTRIAXone 1 GM Vial IVPUSH SCH (22:26)
[2024-08-04 05:30] LABS: A/G RATIO 0.9 (1-2); ALBUMIN 2.9 g/dl (3.4-5.0); ANION GAP 16.1 (5-15); BILIRUBIN TOTAL 0.5 mg/dL (0.2-1.0); BUN/CREATININE RATIO 37.5 (14-18); CALCIUM 8.2 mg/dL (8.5-10.1); CREATININE 0.8 mg/dL (0.55-1.02); EST CRCL DRUG DOSING (CG) 38.44 mL/min; MAGNESIUM 2.1 mg/dL (1.8-2.4); POTASSIUM,K 4.1 mEq/L (3.5-5.1); PROTEIN TOTAL,TP 6.2 g/dl (6.4-8.2)
[2024-08-04 05:46] LABS: BASOPHILS PERCENT AUTO 0.3 % (0.0-1.0); EOSINOPHILS ABSOLUTE AUTO 0.2 K/mm3 (0.0-0.4); EOSINOPHILS PERCENT AUTO 2.9 % (0.0-6.0); HEMATOCRIT 35.3 % (37.0-47.0); HEMOGLOBIN 12.2 gm/dl (12.0-16.0); IMMATURE GRAN ABSOLUTE AUTO 0.06 K/mm3 (0.00-0.05); IMMATURE GRAN PERCENT AUTO 0.8 % (0.0-0.4); LYMPHOCYTES ABSOLUTE AUTO 1.9 K/mm3 (1.0-4.8); LYMPHOCYTES PERCENT AUTO 25.1 % (24.0-44.0); MEAN CORPUSCULAR HEMOGLOBIN 32.9 pg (28.0-32.0); MEAN CORPUSCULAR HGB CONC 34.6 g/dl (32.0-36.0); MEAN PLATELET VOLUME 9.6 fl (9.4-12.3); MONOCYTES ABSOLUTE AUTO 0.6 K/mm3 (0.0-0.8); MONOCYTES PERCENT AUTO 7.5 % (0.0-8.0); NEUTROPHILS ABSOLUTE AUTO 4.7 K/mm3 (1.8-7.7); NEUTROPHILS PERCENT AUTO 63.4 % (41.0-71.0); PLATELET COUNT,PLT 228 K/mm3 (150-400); RED BLOOD CELL COUNT 3.71 M/mm3 (4.10-5.30); WHITE BLOOD CELL COUNT,WBC 7.46 K/mm3 (3.9-11.3)
[2024-08-04 05:52] LABS: MEAN CORPUSCULAR VOLUME 95.1 fl (83.0-99.0)
[2024-08-05 04:54] LABS: BASOPHILS PERCENT AUTO 0.3 % (0.0-1.0); EOSINOPHILS ABSOLUTE AUTO 0.2 K/mm3 (0.0-0.4); EOSINOPHILS PERCENT AUTO 3.2 % (0.0-6.0); HEMATOCRIT 34.6 % (37.0-47.0); HEMOGLOBIN 11.9 gm/dl (12.0-16.0); IMMATURE GRAN ABSOLUTE AUTO 0.07 K/mm3 (0.00-0.05); IMMATURE GRAN PERCENT AUTO 1.1 % (0.0-0.4); LYMPHOCYTES ABSOLUTE AUTO 1.9 K/mm3 (1.0-4.8); LYMPHOCYTES PERCENT AUTO 29.6 % (24.0-44.0); MEAN CORPUSCULAR HEMOGLOBIN 33.2 pg (28.0-32.0); MEAN CORPUSCULAR HGB CONC 34.4 g/dl (32.0-36.0); MEAN CORPUSCULAR VOLUME 96.6 fl (83.0-99.0); MEAN PLATELET VOLUME 9.5 fl (9.4-12.3); MONOCYTES ABSOLUTE AUTO 0.6 K/mm3 (0.0-0.8); MONOCYTES PERCENT AUTO 9.3 % (0.0-8.0); NEUTROPHILS ABSOLUTE AUTO 3.6 K/mm3 (1.8-7.7); NEUTROPHILS PERCENT AUTO 56.5 % (41.0-71.0); PLATELET COUNT,PLT 224 K/mm3 (150-400); RED BLOOD CELL COUNT 3.58 M/mm3 (4.10-5.30); WHITE BLOOD CELL COUNT,WBC 6.32 K/mm3 (3.9-11.3)
[2024-08-05 06:17] LABS: A/G RATIO 0.9 (1-2); ALBUMIN 2.8 g/dl (3.4-5.0); ANION GAP 15.1 (5-15); BILIRUBIN TOTAL 0.3 mg/dL (0.2-1.0); CALCIUM 8.3 mg/dL (8.5-10.1); CREATININE 0.8 mg/dL (0.55-1.02); EST CRCL DRUG DOSING (CG) 38.44 mL/min; MAGNESIUM 1.7 mg/dL (1.8-2.4); POTASSIUM,K 4.1 mEq/L (3.5-5.1)
[2024-08-05] MEDS: Enoxaparin 40 MG/0.4 ML Syringe SUBCUT SCH (09:23)
[2024-08-06 05:40] LABS: BASOPHILS PERCENT AUTO 0.4 % (0.0-1.0); EOSINOPHILS ABSOLUTE AUTO 0.2 K/mm3 (0.0-0.4); EOSINOPHILS PERCENT AUTO 3.2 % (0.0-6.0); HEMATOCRIT 33.7 % (37.0-47.0); HEMOGLOBIN 11.6 gm/dl (12.0-16.0); IMMATURE GRAN ABSOLUTE AUTO 0.12 K/mm3 (0.00-0.05); IMMATURE GRAN PERCENT AUTO 1.7 % (0.0-0.4); LYMPHOCYTES ABSOLUTE AUTO 2.1 K/mm3 (1.0-4.8); LYMPHOCYTES PERCENT AUTO 29.1 % (24.0-44.0); MEAN CORPUSCULAR HEMOGLOBIN 32.8 pg (28.0-32.0); MEAN CORPUSCULAR HGB CONC 34.4 g/dl (32.0-36.0); MEAN CORPUSCULAR VOLUME 95.2 fl (83.0-99.0); MEAN PLATELET VOLUME 9.8 fl (9.4-12.3); MONOCYTES ABSOLUTE AUTO 0.6 K/mm3 (0.0-0.8); MONOCYTES PERCENT AUTO 8.9 % (0.0-8.0); NEUTROPHILS PERCENT AUTO 56.7 % (41.0-71.0); PLATELET COUNT,PLT 238 K/mm3 (150-400); RED BLOOD CELL COUNT 3.54 M/mm3 (4.10-5.30); WHITE BLOOD CELL COUNT,WBC 7.11 K/mm3 (3.9-11.3)
[2024-08-06] MEDS: Magnesium Sulfate/Water Premix 2 GM in Premix Bag 1 BAG IV ONE (10:15)
== END 2024-08-06 15:15 | DRG 699 ==
LOC: JD.ED 20:20 → JD.MS 22:58
PROVIDERS: ADMIT Family Medicine; ATTEND Family Medicine
PROC: 0T2BX0Z Change Drainage Device in Bladder, External Approach (ICD-10-PCS; principal; 2024-08-03)
DX: T83.511A Infection and inflammatory reaction due to indwelling urethral catheter, initial encounter (principal); N39.0 Urinary tract infection, site not specified; R26.89 Other abnormalities of gait and mobility; I69.351 Hemiplegia and hemiparesis following cerebral infarction affecting right dominant side; N30.01 Acute cystitis with hematuria; Z86.73 Personal history of transient ischemic attack (TIA), and cerebral infarction without residual deficits; I69.354 Hemiplegia and hemiparesis following cerebral infarction affecting left non-dominant side; N17.9 Acute kidney failure, unspecified; Z16.24 Resistance to multiple antibiotics; Z66 Do not resuscitate; H54.7 Unspecified visual loss; I10 Essential (primary) hypertension; K21.9 Gastro-esophageal reflux disease without esophagitis; N31.9 Neuromuscular dysfunction of bladder, unspecified; M54.9 Dorsalgia, unspecified; G89.29 Other chronic pain; Z96.642 Presence of left artificial hip joint; R29.6 Repeated falls; F32.89 Other specified depressive episodes; E78.5 Hyperlipidemia, unspecified; R33.9 Retention of urine, unspecified; Y84.6 Urinary catheterization as the cause of abnormal reaction of the patient, or of later complication, without mention of misadventure at the time of the procedure; B96.1 Klebsiella pneumoniae [K. pneumoniae] as the cause of diseases classified elsewhere; B96.20 Unspecified Escherichia coli [E. coli] as the cause of diseases classified elsewhere; Z88.5 Allergy status to narcotic agent; Z88.8 Allergy status to other drugs, medicaments and biological substances; Z79.899 Other long term (current) drug therapy; Z87.01 Personal history of pneumonia (recurrent); Z98.49 Cataract extraction status, unspecified eye; Z90.49 Acquired absence of other specified parts of digestive tract; Z90.710 Acquired absence of both cervix and uterus; Z98.1 Arthrodesis status
CPT/HCPCS: 36415; 70450; 71045; 72125; 80053; 81001; 82550; 82803; 83735; 83880; 83930; 84443; 84484; 85025; 87086; 87088 ×2; 87186 ×2; 87428; 93005; 96365; 99285; J0696; J7030; 51702; 93010; 94761; 97110-GP; 97116-GP; 97161-GP; 97530-GP; 99223; 99232; 99239; A9270-GY; J1650; J3475